=== PATIENT | female | born 1945 | race Caucasian/White ===

== ENCOUNTER 2019-11-09 16:57 | Emergency (ER) | payer MEDICARE, OTHER ==
[~2019-11-09] VITALS: Ht 157.5 cm; Wt 39.5 kg
--- OUTSIDE RECORDS SUMMARY | 2019-11-09 17:02 | XMS REPORT | Summary of Care ---
Author Author [facility] Organization [facility] Address Unknown Phone Unavailable Care Team Providers Care Water/Wastewater Project Manager Name Role Phone Orville Odell PCP Reason for Visit * Reason Comments Establish Care Follow Up Encounter Details Care Team Description Date Type Department Shayy Foster MD [address] [place] [address] Establish Care; Follow Up 10/16/2019 Office Visit [facility] [address], [address] [place] [address] Allergies Comments Active Allergy Reactions Severity Noted Date Ciprofloxacin 11/25/2018 Kdc:Erythromycin+Alcohol+ 04/24/2013 Propylene Glycol Iodine 04/24/2013 Morphine Rash Low 11/15/2015 Opioid Analgesics 04/24/2013 IVP dye - rash - severe Other Other (See High 11/15/2015 Comments), Rash Blood pressure elevates Sulfa Antibiotics Shortness Of High 04/24/2013 Breath Rivaroxaban 11/25/2018 documented as of this encounter (statuses as of 10/16/2019) Medications End Date Status Medication Sig Dispensed Refills Start Date Active amiodarone (PACERONE) 200 Take 100 mg 0 MG tablet by mouth daily. Active losartan-hydrochlorothiaz Take 1 tablet 0 funmilayo (HYZAAR) 100-25 MG by mouth 6 per tablet daily. Active aspirin 81 MG tablet Take 81 mg by 0 mouth daily. Active Carbidopa-Levodopa CR Take 1 tablet 60 Each 5 50-200 MG TBCR by mouth at 8 bedtime. Additional Information Patient not taking. Reason: Therapy completed, Reported on 03/31/2019 1:09 PM Active ezetimibe (ZETIA) 10 MG Take 10 mg by 0 tablet mouth. 8 Active levothyroxine (SYNTHROID) Take by 3 75 MCG tablet mouth daily. 9 Active Pimavanserin Tartrate Take 1 Cap by 30 Cap 5 (NUPLAZID) 34 MG CAPS mouth daily. 9 Active Carbidopa-Levodopa Administer 15 60 Box 11 (DUOPA) 4.63-20 MG/ML ml via peg 9 SUSP tube over 24 hrs/ cont. 5.5 ml per hr/ 1.5 ml prn q hr for periods of poor mobility, slowness and stiffness Active clonazepam (KLONOPIN) 0.5 TAKE 1 TABLET 90 Tab 3 MG tablet BY MOUTH AT 0 BEDTIME Active carbidopa-levodopa Take 2 Tabs 720 Tab 3 (SINEMET) 25-100 MG per by mouth 9 0 tablet times daily. Additional Information Patient not taking. Reported on 10/16/2019 3:17 PM documented as of this encounter (statuses as of 10/16/2019) Active Problems Problem Noted Date Restless legs syndrome (RLS) 06/22/2017 Levodopa-induced dyskinesia 05/22/2017 Dysphagia 05/22/2017 OAB (overactive bladder) 05/22/2017 Hallucinations 05/22/2017 RBD (REM behavioral disorder) 05/22/2017 Anxiety 05/22/2017 Impulse control disorder 05/22/2017 HTN (hypertension) 05/22/2017 CAD (coronary artery disease) 05/22/2017 Hypothyroidism 05/22/2017 Parkinson's disease (HCCode) 04/17/2014 Insomnia due to medical condition classified elsewhere 04/17/2014 H/O: stroke 04/17/2014 documented as of this encounter (statuses as of 10/16/2019) Immunizations Name Administration Dates Next Due Influenza (whole) 04/15/2014 Influenza Hd 06/03/2018, 06/22/2017 Pneumococcal 05/13/2013 Polysaccharide documented as of this encounter Social History Date Tobacco Use Types Packs/Day Years Used Never Smoker Smokeless Tobacco: Never Used Drinks/Week oz/Week Comments Alcohol Use 1 Glasses of wine 1.0 No Sex Assigned at Date Recorded Not on file Industry Job Start Date Occupation Not on file Not on file Not on file Travel End Travel History Travel Start No recent travel history available. documented as of this encounter Last Filed Vital Signs Reading Time Taken Comments Vital Sign - - Blood Pressure - - Pulse - - Temperature 16 10/16/2019 3:16 PM [employer]IT[employer]EL[employer] Respiratory Rate - - Oxygen Saturation - - Inhaled Oxygen Concentration 39.5 kg (87 lb) 10/16/2019 3:16 PM [employer]ITATIVE DEVELOPER Weight 157.5 cm (5' 2") 10/16/2019 3:16 PM QU[employer]ITATIVE DEVELOPER Height 15.91 10/16/2019 3:16 PM [employer]ITATIVE DEVELOPER Body Mass Index documented in this encounter Progress Notes * Shayy Foster MD - 10/16/2019 3:00 PM [employer]ITATIVE DEVELOPER History of Present Illness: Carmen Camacho is a 73 y.o. female who presents for further evaluation of mal nutrition Initial history The patient has parkinsons and has resultant dysphagia from this. She has lost w eight. The patient also has constipation that is not being managed well with her curren t regimen. Interval history 10/16/2019 Had hospitalization at an OSH that resulted in a tube change. The patient now thacker s issues with the tubing and connection. There is no odynophagia, dysphagia There is no emesis, hematemesis There is no weight loss. There is no melena, hematochezia Review of Systems: Constitutional: does not endorse current fever, does not endorse recent trauma Eyes: does not endorse current visual changes, does not endorse current double v ision ENT: does not endorse ear pain, does not endorse tinnitus Cardiovascular: does not endorse chest pain Respiratory: denies cough, denies shortness of breath Gastrointestinal: see HPI Genitourinary: does not endorse hematuria, does not endorse dysuria Musculoskeletal: does not endorse new muscle pain Hematological: does not endorse excessive/prolonged bleeding Neurological: does not endorse confusion Social History: Smoking: no EtOH: yes Social History Tobacco Use Smoking status: Never Smoker Smokeless tobacco: Never Used Substance Use Topics Alcohol use: No Alcohol/week: 1.0 standard drinks Types: 1 Glasses of wine per week Drug use: No Past Medical History: Past Medical History: Diagnosis Date Anxiety Atrial fibrillation (HCCode) on blood thinner CAD (coronary artery disease) Depression Esophageal reflux Hyperlipidemia Hypertension Stroke (HCCode) 2007 dysarthria, right facial droop. MRI brain showed abnormality consistent with s troke. Unspecified hypothyroidism Past Surgical History: Past Surgical History: Procedure Laterality Date HX BREAST SURGERY 2009 benign cyst removal. HX CATARACT REMOVAL 2006 HX CHOLECYSTECTOMY 1995 HX HEART CATHETER 2009 HX HYSTERECTOMY, TOTAL ABDOMINAL 1984 Family History: There is no family history of GI malignancy. There is no family history of inflammatory bowel disease. Physical Exam: Vital Signs Height: 5' 2" (157.5 cm) Weight - Scale: 87 lb (39.5 kg) Respirations: 16 BP: (unable to obtain BP) Body mass index is 15.91 kg/m. General: No apparent distress Neuro: alert, responsive, oriented to self Head: Normocephalic and atraumatic EENT: PERRL, EOMI Neck: Supple, no masses appreciated CV: RRR, PMI is nondisplaced Lung: no labored breathing, grossly CTAB Extremities: no edema, no clubbing Abdomen: soft tender, not distended +BS Assessment and Plan: () g-j tube malfunction -the patient needs new adapter to for current g-j tube -Patients needs to have medications from [facility] -Telephone number -Ask for inventory ID [id number] (ENFIT adapter) () Constipation -failed fiber, miralax, stool softeners -trial of linzess () Thank you for allowing me to part of this patients medical care. I have revie wed the above with the patient who expresses understanding. If there are any que stions, please do not hesitate to contact me. TITATIVE DEVELOPER documented in this encounter Plan of Treatment Care Team Description Date Type Specialty Layo Barbosa MD [address] [place] [address] 10/24/2019 Office Visit Neurology Health Maintenance Due Date Last Done Comments COLON CANCER SCREENIN1947 COLONOSCOPY TETANUS SHOT (ADULT) 1962 BMI FOLLOW UP PLAN 1965 FALL SCREEN 2012 OSTEOPOROSIS SCREENING 2012 PREVNAR >=65 (PCV13) 2012 MAMMOGRAM ANNUAL 06/17/2015 06/17/2014 MEDICARE AWV (Initial) 05/18/2017 PNEUMOVAX >=65 (PPSV23) Completed 05/13/2013 HEPATITIS C SCREENING Addressed 05/22/2017 (Declined) Overridden with the intention of not completing the topic FLU VACCINE > 6 MONTHS Completed 08/22/2019, 06/03/2018, 06/22/2017, Additional history exists documented as of this encounter Results Not on filedocumented in this encounter Visit Diagnoses Diagnosis Gastrostomy tube dysfunction (HCCode) - Primary Mechanical complication of gastrostomy documented in this encounter Insurance Type Payer Benefit Subscriber ID Effective Phone Address Plan / Dates Group Medicare MEDICARE MEDICARE xxxxxxxxxxx 2017- [address] Present [id number] [place] [address] Medicare AETNA AETNA xxxxxxxxxx 2014- [address] Present [id number] [place] [address] documented as of this encounter
--- OUTSIDE RECORDS SUMMARY | 2019-11-09 17:02 | XMS REPORT ---
[facility] Address Unknown Phone Unavailable Care Team Providers Care Bottoming Room Supervisor Name Role Phone KATH DIXON Unavailable Unavailable Payers Payer Name Policy Type Policy Number Effective Date Expiration Date Problems This patient has no known problems. Allergies, Adverse Reactions, Alerts Allergy Name Allergy Type Status Severity Reaction(s) Onset Date Inactive Date Treating Clinician Comments antipsychotic meds DA Active SV 2019-09-18 00:00:00 ANTI PSYCHOTIC DRUGS DA Active U 2019-09-18 00:00:00 Iodinated Contrast Media DA Active SV 2019-09-18 00:00:00 Sulfa (Sulfonamide Antibiotics) DA Active SV 2019-09-18 00:00:00 haloperidol DA Active NM 2019-09-18 00:00:00 morphine DA Active SV 2019-09-18 00:00:00 clonazepam DA Active NM 2019-09-18 00:00:00 erythromycin base DA Active SV 2019-09-18 00:00:00 ciprofloxacin DA Active U 2019-09-18 00:00:00 gabapentin DA Active NM 2019-09-18 00:00:00 atorvastatin DA Active SV 2019-09-18 00:00:00 rivaroxaban DA Active SV 2019-09-18 00:00:00 xeralto DA Active U 2019-09-17 00:00:00 ciprofloxacin DA Active U 2019-09-16 00:00:00 Iodinated Contrast- Oral and IV Dye DA Active SV 2019-03-16 00:00:00 Sulfa (Sulfonamide Antibiotics) DA Active SV 2019-03-16 00:00:00 morphine DA Active SV 2019-03-16 00:00:00 erythromycin base DA Active SV 2019-03-16 00:00:00 atorvastatin DA Active SV 2019-03-16 00:00:00 rivaroxaban DA Active SV 2019-03-16 00:00:00 Iodinated Contrast- Oral and IV Dye DA Active SV 2019-03-05 00:00:00 Sulfa (Sulfonamide Antibiotics) DA Active SV 2019-03-05 00:00:00 morphine DA Active SV 2019-03-05 00:00:00 erythromycin base DA Active SV 2019-03-05 00:00:00 atorvastatin DA Active SV 2019-03-05 00:00:00 rivaroxaban DA Active SV 2019-03-05 00:00:00 Iodinated Contrast- Oral and IV Dye DA Active SV 2018-10-20 00:00:00 Sulfa (Sulfonamide Antibiotics) DA Active SV 2018-10-20 00:00:00 morphine DA Active SV 2018-10-20 00:00:00 erythromycin base DA Active SV 2018-10-20 00:00:00 atorvastatin DA Active SV 2018-10-20 00:00:00 rivaroxaban DA Active SV 2018-10-20 00:00:00 Iodinated Contrast- Oral and IV Dye DA Active SV 2017-09-27 00:00:00 Sulfa (Sulfonamide Antibiotics) DA Active SV 2017-09-27 00:00:00 morphine DA Active SV 2017-09-27 00:00:00 erythromycin base DA Active SV 2017-09-27 00:00:00 atorvastatin DA Active SV 2017-09-27 00:00:00 rivaroxaban DA Active SV 2017-09-27 00:00:00 Medications This patient has no known medications. Results Test Description Test Time Test Comments Text Results Atomic Results Result Comments WOUND CULTURE + GRAM STAIN 2019-11-05 12:01:00 CULTURE (BEAKER) (test wbsf=2754) STAPHYLOCOCCUS AUREUS 4+ Staphylococcus aureus Clindamycin (test code=10) Erythromycin (test code=4) Linezolid (test code=40) Nitrofurantoin (test code=23) Oxacillin (test code=14) Rifampin (test code=43) Tetracycline (test code=2) Trimethoprim + Sulfamethoxazole (test code=47) Vancomycin (test code=13) GRAM STAIN RESULT (BEAKER) (test oilv=6113) 2+ White blood cells seen GRAM STAIN RESULT (BEAKER) (test mnxg=023812) 0-5 epithelial cells GRAM STAIN RESULT (BEAKER) (test megu=251944) 1+ gram positive cocci in pairs URINE [id number] 10:44:00* Test Item Value Reference Range Comments CULTURE (BEAKER) (test kcqy=3874) See comment <10,000 col/mL skin floraURINALYSIS W/ [id number] 19:14:00* Test Item Value Reference Range Comments COLOR (BEAKER) (test fsxb=715) Yellow CLARITY (BEAKER) (test nljg=741) Hazy SPECIFIC GRAVITY UA (BEAKER) (test iihc=705) 1.020 1.001-1.035 PH UA (BEAKER) (test qpic=922) 7.0 5.0-8.0 PROTEIN UA (BEAKER) (test vxnz=282) 30 mg/dL Negative GLUCOSE UA (BEAKER) (test ecmk=834) Negative Negative KETONES UA (BEAKER) (test jwmp=565) 40 mg/dL Negative BILIRUBIN UA (BEAKER) (test njky=791) Positive Negative BLOOD UA (BEAKER) (test jxes=707) Negative Negative NITRITE UA (BEAKER) (test hlci=279) Negative Negative LEUKOCYTE ESTERASE UA (BEAKER) (test moqj=875) Trace Negative UROBILINOGEN UA (BEAKER) (test evfj=352) 1.0 mg/dL 0.2-1.0 RBC UA-MANUAL (BEAKER) (test topm=8499) None Seen /HPF WBC UA-MANUAL (BEAKER) (test bxsn=8393) 10-20 /HPF SQUAMOUS EPITHELIAL MANUAL (BEAKER) (test blfe=1688) 10-20 /HPF SOURCE(BEAKER) (test xijj=4017) UA RFLX MICR CULT IF [id number] 01:45:00* Test Item Value Reference Range Comments UA COLOR (test code=COLU) YELLOW YEL/STRAW UA APPEARANCE (test code=APPU) CLOUDY CLEAR UA GLUCOSE DIPSTICK (test code=DGLUU) NEGATIVE NEGATIVE UA BILIRUBIN DIPSTICK (test code=BILU) NEGATIVE NEGATIVE UA KETONE DIPSTICK (test code=KETU) 1+ NEGATIVE UA SPECIFIC GRAVITY (test code=SGU) 1.015 1.005-1.030 UA BLOOD DIPSTICK (test code=XIOMARA) 3+ NEGATIVE UA PH DIPSTICK (test code=KINZA) 6.0 5.0-7.0 UA PROTEIN DIPSTICK (test code=PROU) 2+ NEGATIVE UA UROBILINIOGEN DIPSTICK (test code=URO) 0.2 mg/dL 0.2-1.0 UA NITRITE DIPSTICK (test code=LUIS) NEGATIVE NEGATIVE UA LEUKOCYTE ESTERASE DIPSTICK (test code=LEUU) TRACE NEGATIVE UA WBC (test code=WBCU) 4-9 WBC/HPF 0-3 UA RBC (test code=RBCU) >50 RBC/HPF 0-3 UA WBC NO REFLEX (test code=WBCUCL) 4-9 WBC/HPF 0-3 UA BACTERIA (test code=BACU) TRACE /HPF NONE SEEN UA SQUAMOUS CELLS (test code=SQU) NONE SEEN /HPF NONE SEEN UA HYALINE CAST (test code=HYALU) 3-5 /LPF NONE SEEN UA MUCUS (test code=MUCU) 1+ /LPF NONE SEEN UA YEAST (BUDDING) (test code=YEASTUBD) 1+ /HPF NONE Indication for culture: Delirium-if no other srcSpecimen Description: CLEAN CATCHDRUGS OF ABUSE SCREEN [id number] 01:35:00* Test Item Value Reference Range Comments URN COCAINE (test code=COCAURN) NEGATIVE NEGATIVE URN CANNABINOIDS (test code=CANNABURN) NEGATIVE NEGATIVE URN AMPHETAMINE (test code=AMPHETURN) NEGATIVE NEGATIVE URN BARBITURATE (test code=BARBITURN) NEGATIVE NEGATIVE URN BENZODIAZEPINE (test code=BENZOURN) NEGATIVE NEGATIVE Cut-off value:200 ng/mL URN OPIATES (test code=OPIATURN) NEGATIVE NEGATIVE Cut-off value:2000 ng/mL URN PHENCYCLIDINE (PCP) (test code=PHENCURN) NEGATIVE NEGATIVE Cutoffs:Barbiturates 200 ng/mLBenzodiazepines 200 ng/mLTHC Cannabinoids 50 ng/mLOpiates(Morphine) 2000 ng/mLAmphetamine 1000 ng/mLCocaine 300 ng/mLPCP phencyclidine 25 ng/mL Unconfirmed screening results shouldnot be used for non-medical purposes. - CT HEAD/BRAIN W/O [id number] 00:08:00 Name: BIANKA DE LEON [facility] : 1945 Age/S: 73 / F [address] [place] [address] Unit #: [id number] Loc: [place] [address] Phys: Jared Arndt DO Acct: [id number] Dis Date: Status: REG ER PHONE #: [phone] Exam Date: 10/22/20192235 FAX #: [phone] Reason: Altered Mental Status EXAMS: CPT CODE: [id number] CT HEAD/BRAIN W/O CONT 16498 STUDY: - CT HEAD/BRAIN W/O CONT 10/22/2019 9:51 PM Ordering Physician: Jared Arndt DO Patient Name: BIANKA DE LEON MR: [id number] : 1945; Age: 73 years y/o Female Clinical Indication: Altered Mental Status Comparison: 07/24/2019 TECHNIQUE: Multiple contiguous transaxial noncontrast CT images were obtained through the head. Coronal and sagittal reformatted images were prepared. CT imaging performed at this location utilizes radiation dose optimization techniques which include one or more of the following: -Automated exposure control -Adjustment of the mA and/or kV according to patient size -Use of iterative reconstruction technique CT Radiation Dose DLP: 469.15 mGy-cm FINDINGS: The examination is mildly limited by oblique patient positioning. BRAIN PARENCHYMA: Mild diffuse age-appropriate atrophy is present associated with moderate nonspecific periventricular low attenuation most consistent with old microangiopathic ischemic change. 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 Stable old right basal ganglia lacunar infarction. No evidence of acute intracranial hemorrhage, mass lesion, mass e ffect, midline shift, or extra-axial fluid collection. VENTRICLES: The lateral ventricles, third ventricle, fourth ventricle, and basilar ci sterns are appropriate for degree of atrophy present. PARANASAL SI NUSES: Minimal mucoperiosteal thickening in the ethmoid PAGE 1 Signed Report (CONTINUED) Name: BIANKA DE LEON [facility] : 1945 Age/S: 73 / F [address] [place] [address] Unit #: [id number] Loc: [place] [address] Phys: Jared Arndt DO Acct: [id number] Dis Date: Status: REG ER PHONE #: [phone] Exam Date: 10/22/20192235 FAX #: [phone] Reason: Altered Mental Status EXAMS: CPT CODE: [id number] CT HEAD/BRAIN W/O CONT 66073 <Continued> sinus and right maxillary sinus. The visualized portions of the remaining paranasal sinuses are clear. MASTOIDS: Clear. ORBITS: The visualized portions of the orbits are normal. SOFT TISSUES: No significant abnormality. SKULL: No acute fracture or suspicious osseous lesion. IMPRESSION: Mild diffuse age-appropriate atrophy is present associated with moderate nonspecific periventricular low attenuation most consistent with old microangiopathic ischemic change. No acute intracranial abnormality. 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 Stable old right basal ganglia lacunar infarction. Minimal chronic sinusitis. SL: TPAINTER-H at 0008 Reported and signed by: Catalino Gaspar M.D. CC: Jared Arndt DO; Orville Odell DO Technologist:RT Robert(Orville) CTDI: DLP: Trnscb Date/Time: 10/23/2019 (0008) [id number] Orig Print D/T: S: 10/23/2019 (0011) PAGE 2 Signed Report - XR CHEST 1 [id number] 23:46:00 FAX: Jared Schafer DO [phone] [place]: St: REG FAX: Orville Mayfield [phone] Name: BIANKA DE LEON [facility] : 1945 Age/S: 73/F [address] [place] [address] Unit #: [id number] Loc: [place] [address] Phys: Jared Arndt DO Acct: [id number] Dis Date: Status: REG ER PHONE #: [phone] Exam Date: 10/22/2019 2344 FAX #: [phone] Reason: Altered Mental Status EXAMS: CPT CODE: [id number] XR CHEST 1 V 89810 Study: - XR CHEST 1 V 10/22/2019 9:51 PM Patient Name: BIANKA DE LEON MR: [id number] : 1945; Age: 73 years y/o Female Ordering Physician: Jared Arndt DO Clinical Indication: Altered Mental Status Comparison: 09/27/2019 FINDINGS LUNGS: Mild hypoinflation without consolidation, pleural effusion, or pneumothorax. Small nodular densities in the right suprahilar region may represent artifact from vessels or true pulmonary nodules although further characterization is difficult given oblique patient positioning. HEART AND MEDIASTINUM: Stable mild cardiomegaly. LINES: None. OSSEOUS STRUCTURES: No fracture, dislocation, or suspicious focal osseous lesion. OTHER: Postoperative change in the right upper abdominal quadrant. IMPRESSION: Hypoinflated but clear lungs with nodular densities in the right suprahilar region that may represent summation artifact or true pulmonary nodules. Further characterization is difficult given oblique patient positioning. Short interval follow-up radiographs or CT is rec ommended. Mild cardiomegaly. SL: TPAINTER-H PAGE 1 Signed Report (CONTINUED) FAX: Jared Schafer DO [phone] [place]: St: REG FAX: Orville Mayfield [phone] Name: POOJA DE LEON [facility] : 1945 Age/ S: 73/F [address] [place] [address] Unit #: [id number] Loc: [place] [address] [place] [address] Phys: Jared Arndt DO Acct: [id number] Dis Date: Status: REG ER PHONE #: [phone] Exam Date: 10/22/20192343 FAX #: [phone] Reason: Altered Mental Status EXAMS: CPT CODE: [id number] XR CHEST 1 V 05937 <Continued> at 2346 Reported and signed by: Catalino Gaspar M.D. CC: Jared Arndt DO; Orville Odell DO Technologist: Tamra Burk RT(R) Trnscrd Date/Time/By: 10/22/2019 (598) : By: [email or web address] Orig Print D/T: S: 10/22/2019 (6287) PAGE 2 Signed Report BASIC METABOLIC [id number] 22:45:00* Test Item Value Reference Range Comments SODIUM (test code=NA) 144 mEq/L 134-147 POTASSIUM (test code=K) 3.8 mEq/L 3.4-5.0 CHLORIDE (test code=CL) 112 mEq/L 100-108 CARBON DIOXIDE (test code=CO2) 24 mEq/L 21-33 ANION GAP (test code=GAP) 12 0-20 GLUCOSE (test code=GLU) 98 mg/dL 70-110 BLOOD UREA NITROGEN (test code=BUN) 12 mg/dL 7-18 GLOMERULAR FILTRATION RATE (test code=GFR) 82.5 70-80 Units of measure=ml/min/1.73 m2 CREATININE (test code=CREAT) 0.7 mg/dL 0.6-1.3 CALCIUM (test code=CA) 9.7 mg/dL 8.0-10.5 HEPATIC FUNCTION [id number] 22:45:00* Test Item Value Reference Range Comments TOTAL PROTEIN (test code=PROT) 6.8 g/dL 6.4-8.2 ALBUMIN (test code=ALB) 4.00 g/dL 3.4-5.0 BILIRUBIN TOTAL (test code=BILT) 0.7 MG/DL <1.5 BILIRUBIN DIRECT (test code=BILD) 0.20 MG/DL 0.0-0.30 BILIRUBIN INDIRECT (test code=BILIND) 0.50 MG/DL SGOT/AST (test code=AST) 27 IUnit/L 15-37 SGPT/ALT (test code=ALT) 11 IUnit/L 15-65 ALKALINE PHOSPHATASE TOTAL (test code=ALKP) 91 IUnit/L 20-125 CREATINE KINASE (CK)2019-10-22 22:45:00* Test Item Value Reference Range Comments CREATINE KINASE (CK) (test code=CK) 153 35-232 Result is in INTERNATIONAL UNITS/LITER TSH REFLEX TO [id number] 22:45:00* Test Item Value Reference Range Comments TSH REFLEX TO FT4 (test code=TSHREFLEX) 3.63 IU/mL 0.42-5.47 [id number] 22:45:00* Test Item Value Reference Range Comments ALCOHOL (test code=ALC) < 0.003 G/dL <0.003 Ethyl Alcohol Interpretation: 0.100 gm/dL - Legally Intoxicated 0.300-0.400 gm/dL - Severely Intoxicated >0.400 gm/dL - Potentially LethalResults are for Medical purposes only, and not for Legal orEmployment evaluation purposes. BASIC METABOLIC [id number] 22:37:00* Test Item Value Reference Range Comments SODIUM (test code=NA) 144 mEq/L 134-147 POTASSIUM (test code=K) 3.8 mEq/L 3.4-5.0 CHLORIDE (test code=CL) 112 mEq/L 100-108 CARBON DIOXIDE (test code=CO2) 24 mEq/L 21-33 ANION GAP (test code=GAP) 12 0-20 GLUCOSE (test code=GLU) 98 mg/dL 70-110 BLOOD UREA NITROGEN (test code=BUN) 12 mg/dL 7-18 GLOMERULAR FILTRATION RATE (test code=GFR) 82.5 70-80 Units of measure=ml/min/1.73 m2 CREATININE (test code=CREAT) 0.7 mg/dL 0.6-1.3 CALCIUM (test code=CA) 9.7 mg/dL 8.0-10.5 HEPATIC FUNCTION [id number] 22:37:00* Test Item Value Reference Range Comments TOTAL PROTEIN (test code=PROT) 6.8 g/dL 6.4-8.2 ALBUMIN (test code=ALB) 4.00 g/dL 3.4-5.0 BILIRUBIN TOTAL (test code=BILT) 0.7 MG/DL <1.5 BILIRUBIN DIRECT (test code=BILD) 0.20 MG/DL 0.0-0.30 BILIRUBIN INDIRECT (test code=BILIND) 0.50 MG/DL SGOT/AST (test code=AST) 27 IUnit/L 15-37 SGPT/ALT (test code=ALT) 11 IUnit/L 15-65 ALKALINE PHOSPHATASE TOTAL (test code=ALKP) IUnit/L 20-125 CREATINE KINASE (CK)2019-10-22 22:37:00* Test Item Value Reference Range Comments CREATINE KINASE (CK) (test code=CK) 35-232 TSH REFLEX TO [id number] 22:37:00* Test Item Value Reference Range Comments TSH REFLEX TO FT4 (test code=TSHREFLEX) IU/mL 0.42-5.47 [id number] 22:37:00* Test Item Value Reference Range Comments ALCOHOL (test code=ALC) < 0.003 G/dL <0.003 Ethyl Alcohol Interpretation: 0.100 gm/dL - Legally Intoxicated 0.300-0.400 gm/dL - Severely Intoxicated >0.400 gm/dL - Potentially LethalResults are for Medical purposes only, and not for Legal orEmployment evaluation purposes. CBC W/AUTO [id number] 22:15:00* Test Item Value Reference Range Comments WHITE BLOOD CELL (test code=WBC) 8.06 x10 3/uL 4.5-11.0 RED BLOOD CELL (test code=RBC) 3.09 x10 6/uL 3.54-5.02 HEMOGLOBIN (test code=HGB) 9.8 g/dL 11.0-15.0 HEMATOCRIT (test code=HCT) 30.9 % 33.0-45.0 MEAN CELL VOLUME (test code=MCV) 100.0 fL 81.0-99.0 MEAN CELL HGB (test code=MCH) 31.7 pg 27.0-33.0 MEAN CELL HGB CONCETRATION (test code=MCHC) 31.7 g/dL 33.0-37.0 RED CELL DISTRIBUTION WIDTH CV (test code=RDW) 14.0 % 11.5-14.5 RED CELL DISTRIBUTION WIDTH SD (test code=RDW-SD) 51.3 fL 37.0-54.0 PLATELET COUNT (test code=PLT) 303 x10 3/uL 150-400 MEAN PLATELET VOLUME (test code=MPV) 9.5 fL 7.0-9.0 NEUTROPHIL % (test code=NT%) 69.2 % 56.0-77.0 IMMATURE GRANULOCYTE % (test code=IG%) 0.9 % 0.0-2.0 LYMPHOCYTE % (test code=LY%) 16.3 % 14.0-32.0 MONOCYTE % (test code=MO%) 12.0 % 4.8-9.0 EOSINOPHIL % (test code=EO%) 1.2 % 0.3-3.7 BASOPHIL % (test code=BA%) 0.4 % 0.0-2.0 NUCLEATED RBC % (test code=NRBC%) 0.0 % 0-0 NEUTROPHIL # (test code=NT#) 5.58 x10 3/uL 2.0-7.6 IMMATURE GRANULOCYTE # (test code=IG#) 0.07 x10 3/uL 0.00-0.03 LYMPHOCYTE # (test code=LY#) 1.31 x10 3/uL 1.0-3.8 MONOCYTE # (test code=MO#) 0.97 x10 3/uL 0.1-0.8 EOSINOPHIL # (test code=EO#) 0.10 x10 3/uL 0.0-0.2 BASOPHIL # (test code=BA#) 0.03 x10 3/uL 0.0-0.2 NUCLEATED RBC # (test code=NRBC#) 0.00 x10 3/uL 0.0-0.1 MANUAL DIFF REQUIRED (test code=MDIFF) NO - CVRT GASTR TO GSJEJ [id number] 14:35:00 Name: BIANKA DE LEON [facility] : 1945 Age/S: 73 / F [address] [facility] Unit #: [id number] Loc: [place] [address] Phys: Adis Berman MD Acct: [id number] Dis Date: [id number] Status: DIS IN PHONE #: [phone] Exam Date: 09/26/2019 1146 FAX #: [phone] Reason: EXAMS: CPT CODE: [id number] CVRT GASTR TO GSJEJ TUBE 31825 Fluoro Time: 743.4 DAP (Gy m2): 7.80 Air Kerma (mGy): 63 EXAM: Percutaneous conversion of gastrostomy to gastrojejunostomy; INFORMATION: Patient with history of Parkinson's disease. She requires continuous drug infusion into the jejunum and she also needs gastric tube feeding. She presents with a PEG tube and has been referred for conversion to gastrojejunostomy. TECHNIQUE AND FINDINGS: Informed consent was obtained and the patient was placed supine on the CT table. Initial fluoroscopic imaging shows the tip of a PEG tube within the gastric corpus. General anesthesia was initiated, the patient's skin in the epigastric region was prepped and draped in the usual sterile fashion and Marcaine was administered around the skin entry site of the PEG tube. Ancef was given intravenously and 1 mg of glucagon was also given intravenously. The stomach was then inflated by injecting air through the indwelling PEG tube which was then removed over a guidewire. Using a 5 Honduran Kumpe catheter the wire was advanced through the pylorus into the duodenum and further into the proximal jejunum. A 22 [place]uran soft Silastic gastrojejunal feeding tube was then inserted. Its retention balloon was inflated with dilute contrast material. Contrast material was then also injected through the feeding tube which was well-positioned with its tip in the proximal jejunal. No complications. IMPRESSION: Successful conversion of gastrostomy to gastrojejunostomy under fluoroscopic guidance. Fluoroscopy Time: 743.4 sec CAK : 63 mGy DAP : 7800 mGy sq cm Loc ation code: H[facility] at 1434 Reported and signed by: Kevin Feliciano M.D. CC: Adis Berman MD; Orville Odell DO Technologist: Kavitha Tom Trnalb Date/Time: 10/03/2019 (1434) Wei Orig Print D/T: S: 10/03/2019 (2541) PAGE 1 Signed Report BASIC METABOLIC [id number] 10:49:00* Test Item Value Reference Range Comments SODIUM (test code=NA) 135 mmol/L 136-145 POTASSIUM (test code=K) 4.4 mmol/L 3.5-5.1 CHLORIDE (test code=CL) 102.0 mmol/L 98-107 CARBON DIOXIDE (test code=CO2) 27.0 mmol/L 21-32 ANION GAP (test code=GAP) 10.4 10-20 GLUCOSE (test code=GLU) 140 mg/dL 74-106 BLOOD UREA NITROGEN (test code=BUN) 15 mg/dL 7-18 GLOMERULAR FILTRATION RATE (test code=GFR) > 60 mL/min >=60 Estimated GFR by using Modified MDRD formula.Chronic kidney disease is defined as either kidney damageor GFR <60 mL/min/1.73 m2 for >3 months. CREATININE (test code=CREAT) 0.50 mg/dL 0.55-1.02 Note change in reference range due to change in reagent. BUN/CREATININE RATIO (test code=BUN/CREA) 30.0 10-20 CALCIUM (test code=CA) 9.0 mg/dL 8.5-10.1 CBC W/AUTO [id number] 10:22:00* Test Item Value Reference Range Comments WHITE BLOOD CELL (test code=WBC) 12.7 K/mm3 4.5-12.5 RED BLOOD CELL (test code=RBC) 3.41 mill/mm3 3.7-5.2 HEMOGLOBIN (test code=HGB) 10.9 gram/dL 11.5-15.5 HEMATOCRIT (test code=HCT) 32.6 % 36.0-46.0 MEAN CELL VOLUME (test code=MCV) 95.6 fL 80-98 MEAN CELL HGB (test code=MCH) 32.0 picogram 27.0-33.0 MEAN CELL HGB CONCETRATION (test code=MCHC) 33.4 gram/dL 33.0-36.0 RED CELL DISTRIBUTION WIDTH (test code=RDW) 14.6 % 11.6-16.2 RED CELL DISTRIBUTION WIDTH SD (test code=RDW-SD) 50.0 fL 37.0-51.0 PLATELET COUNT (test code=PLT) 227 K/mm3 150-450 MEAN PLATELET VOLUME (test code=MPV) 12.2 fL 6.7-11.0 NEUTROPHIL % (test code=NT%) 84.0 % 39.0-69.0 IMMATURE GRANULOCYTE % (test code=IG%) 0.6 % 0.0-5.0 LYMPHOCYTE % (test code=LY%) 4.2 % 25.0-55.0 MONOCYTE % (test code=MO%) 10.8 % 0.0-10.0 EOSINOPHIL % (test code=EO%) 0.2 % 0.0-5.0 BASOPHIL % (test code=BA%) 0.2 % 0.0-1.0 NUCLEATED RBC % (test code=NRBC%) 0.0 % 0-0 NEUTROPHIL # (test code=NT#) 10.68 K/mm3 1.8-7.7 IMMATURE GRANULOCYTE # (test code=IG#) 0.08 x10 3/uL 0-0.03 LYMPHOCYTE # (test code=LY#) 0.54 K/mm3 1.0-5.0 MONOCYTE # (test code=MO#) 1.37 K/mm3 0-0.8 EOSINOPHIL # (test code=EO#) 0.03 K/mm3 0.0-0.5 BASOPHIL # (test code=BA#) 0.02 K/mm3 0.0-0.2 NUCLEATED RBC # (test code=NRBC#) 0.00 K/mm3 0.0-0.1 MANUAL DIFF REQUIRED (test code=MDIFF) NO BASIC METABOLIC [id number] 13:54:00* Test Item Value Reference Range Comments SODIUM (test code=NA) 138 mmol/L 136-145 POTASSIUM (test code=K) 4.6 mmol/L 3.5-5.1 CHLORIDE (test code=CL) 103.0 mmol/L 98-107 CARBON DIOXIDE (test code=CO2) 30.0 mmol/L 21-32 ANION GAP (test code=GAP) 9.6 10-20 GLUCOSE (test code=GLU) 125 mg/dL 74-106 BLOOD UREA NITROGEN (test code=BUN) 16 mg/dL 7-18 GLOMERULAR FILTRATION RATE (test code=GFR) > 60 mL/min >=60 Estimated GFR by using Modified MDRD formula.Chronic kidney disease is defined as either kidney damageor GFR <60 mL/min/1.73 m2 for >3 months. CREATININE (test code=CREAT) 0.50 mg/dL 0.55-1.02 Note change in reference range due to change in reagent. BUN/CREATININE RATIO (test code=BUN/CREA) 32.0 10-20 CALCIUM (test code=CA) 8.6 mg/dL 8.5-10.1 BASIC METABOLIC [id number] 13:53:00* Test Item Value Reference Range Comments SODIUM (test code=NA) 138 mmol/L 136-145 POTASSIUM (test code=K) 4.6 mmol/L 3.5-5.1 CHLORIDE (test code=CL) 103.0 mmol/L 98-107 CARBON DIOXIDE (test code=CO2) mmol/L 21-32 ANION GAP (test code=GAP) 10-20 GLUCOSE (test code=GLU) mg/dL 74-106 BLOOD UREA NITROGEN (test code=BUN) mg/dL 7-18 GLOMERULAR FILTRATION RATE (test code=GFR) mL/min >=60 CREATININE (test code=CREAT) mg/dL 0.55-1.02 BUN/CREATININE RATIO (test code=BUN/CREA) 10-20 CALCIUM (test code=CA) mg/dL 8.5-10.1 BASIC METABOLIC [id number] 13:51:00* Test Item Value Reference Range Comments SODIUM (test code=NA) 138 mmol/L 136-145 POTASSIUM (test code=K) 4.3 mmol/L 3.5-5.1 CHLORIDE (test code=CL) 103.0 mmol/L 98-107 CARBON DIOXIDE (test code=CO2) 29.0 mmol/L 21-32 ANION GAP (test code=GAP) 10.3 10-20 GLUCOSE (test code=GLU) 161 mg/dL 74-106 BLOOD UREA NITROGEN (test code=BUN) 18 mg/dL 7-18 GLOMERULAR FILTRATION RATE (test code=GFR) > 60 mL/min >=60 Estimated GFR by using Modified MDRD formula.Chronic kidney disease is defined as either kidney damageor GFR <60 mL/min/1.73 m2 for >3 months. CREATININE (test code=CREAT) 0.60 mg/dL 0.55-1.02 Note change in reference range due to change in reagent. BUN/CREATININE RATIO (test code=BUN/CREA) 30.0 10-20 CALCIUM (test code=CA) 8.7 mg/dL 8.5-10.1 DR IN ROOM AT 1045. COME BACK IN A FEW MINUTES. BASIC METABOLIC [id number] 13:38:00* Test Item Value Reference Range Comments SODIUM (test code=NA) 138 mmol/L 136-145 POTASSIUM (test code=K) 4.3 mmol/L 3.5-5.1 CHLORIDE (test code=CL) 103.0 mmol/L 98-107 CARBON DIOXIDE (test code=CO2) mmol/L 21-32 ANION GAP (test code=GAP) 10-20 GLUCOSE (test code=GLU) mg/dL 74-106 BLOOD UREA NITROGEN (test code=BUN) mg/dL 7-18 GLOMERULAR FILTRATION RATE (test code=GFR) mL/min >=60 CREATININE (test code=CREAT) mg/dL 0.55-1.02 BUN/CREATININE RATIO (test code=BUN/CREA) 10-20 CALCIUM (test code=CA) mg/dL 8.5-10.1 DR IN ROOM AT 1045. COME BACK IN A FEW MINUTES. - XR CHEST 1 [id number] 08:50:00 FAX: Adis Berman MD [phone] [place]: St: ADM FAX: Eugene Driscoll NP [phone] FAX: [facility] [phone] Name: BIANKA DE LEON [facility] : 1945 Age/S: 73[facility]F [address] [facility] Unit #: [id number] Loc: [id number] [place], [place] [id number] Phys: Eugene Driscoll NP Acct: [id number] Dis Date: Status: ADM IN PH ONE #: [id number] Exam Date: 09/27/2019804 FAX #: [phone] Reason: edema EXAMS: CPT CODE: [id number] XR CHEST 1 V [id number] EXAM: Chest x- ray, one view; INFORMATION: Edema; IMPRESSION: 1. Small left pleural effusion; this is new compared with a study from September 16, 2019. 2. Otherwise, no major change; no evidence of pu lmonary edema; mild cardiomegaly. Location code: at 0850 Reported and signed by: Kevin Feliciano M.D. CC: Adis Berman MD; uEgene Driscoll NP; Orville Odell DO Technologist: BENJAMÍN CASTANEDA RT(R) Trnscrd Date/Time/By: 09/27/2019 (0850) : By: t.S Orig Print D/T: S: 09/27/2019 (0854) JOLEEN GOSS 1 Signed Report BASIC METABOLIC [id number] 05:25:00* Test Item Value Reference Range Comments SODIUM (test code=NA) 141 mmol/L 136-145 POTASSIUM (test code=K) 4.7 mmol/L 3.5-5.1 CHLORIDE (test code=CL) 108.0 mmol/L 98-107 CARBON DIOXIDE (test code=CO2) 28.0 mmol/L 21-32 ANION GAP (test code=GAP) 9.7 10-20 GLUCOSE (test code=GLU) 107 mg/dL 74-106 BLOOD UREA NITROGEN (test code=BUN) 11 mg/dL 7-18 GLOMERULAR FILTRATION RATE (test code=GFR) > 60 mL/min >=60 Estimated GFR by using Modified MDRD formula.Chronic kidney disease is defined as either kidney damageor GFR <60 mL/min/1.73 m2 for >3 months. CREATININE (test code=CREAT) 0.40 mg/dL 0.55-1.02 Note change in reference range due to change in reagent. BUN/CREATININE RATIO (test code=BUN/CREA) 27.5 10-20 CALCIUM (test code=CA) 8.6 mg/dL 8.5-10.1 BASIC METABOLIC [id number] 05:15:00* Test Item Value Reference Range Comments SODIUM (test code=NA) 141 mmol/L 136-145 POTASSIUM (test code=K) 4.7 mmol/L 3.5-5.1 CHLORIDE (test code=CL) 108.0 mmol/L 98-107 CARBON DIOXIDE (test code=CO2) mmol/L 21-32 ANION GAP (test code=GAP) 10-20 GLUCOSE (test code=GLU) mg/dL 74-106 BLOOD UREA NITROGEN (test code=BUN) mg/dL 7-18 GLOMERULAR FILTRATION RATE (test code=GFR) mL/min >=60 CREATININE (test code=CREAT) mg/dL 0.55-1.02 BUN/CREATININE RATIO (test code=BUN/CREA) 10-20 CALCIUM (test code=CA) mg/dL 8.5-10.1 CBC W/AUTO [id number] 04:57:00* Test Item Value Reference Range Comments WHITE BLOOD CELL (test code=WBC) 8.3 K/mm3 4.5-12.5 RED BLOOD CELL (test code=RBC) 3.34 mill/mm3 3.7-5.2 HEMOGLOBIN (test code=HGB) 10.8 gram/dL 11.5-15.5 HEMATOCRIT (test code=HCT) 31.8 % 36.0-46.0 MEAN CELL VOLUME (test code=MCV) 95.2 fL 80-98 MEAN CELL HGB (test code=MCH) 32.3 picogram 27.0-33.0 MEAN CELL HGB CONCETRATION (test code=MCHC) 34.0 gram/dL 33.0-36.0 RED CELL DISTRIBUTION WIDTH (test code=RDW) 14.6 % 11.6-16.2 RED CELL DISTRIBUTION WIDTH SD (test code=RDW-SD) 49.3 fL 37.0-51.0 PLATELET COUNT (test code=PLT) 140 K/mm3 150-450 MEAN PLATELET VOLUME (test code=MPV) 12.8 fL 6.7-11.0 NEUTROPHIL % (test code=NT%) 70.9 % 39.0-69.0 IMMATURE GRANULOCYTE % (test code=IG%) 0.8 % 0.0-5.0 LYMPHOCYTE % (test code=LY%) 12.4 % 25.0-55.0 MONOCYTE % (test code=MO%) 12.5 % 0.0-10.0 EOSINOPHIL % (test code=EO%) 2.9 % 0.0-5.0 BASOPHIL % (test code=BA%) 0.5 % 0.0-1.0 NUCLEATED RBC % (test code=NRBC%) 0.0 % 0-0 NEUTROPHIL # (test code=NT#) 5.88 K/mm3 1.8-7.7 IMMATURE GRANULOCYTE # (test code=IG#) 0.07 x10 3/uL 0-0.03 LYMPHOCYTE # (test code=LY#) 1.03 K/mm3 1.0-5.0 MONOCYTE # (test code=MO#) 1.04 K/mm3 0-0.8 EOSINOPHIL # (test code=EO#) 0.24 K/mm3 0.0-0.5 BASOPHIL # (test code=BA#) 0.04 K/mm3 0.0-0.2 NUCLEATED RBC # (test code=NRBC#) 0.00 K/mm3 0.0-0.1 BASIC METABOLIC [id number] 06:18:00* Test Item Value Reference Range Comments SODIUM (test code=NA) 141 mmol/L 136-145 POTASSIUM (test code=K) 3.7 mmol/L 3.5-5.1 CHLORIDE (test code=CL) 108.0 mmol/L 98-107 CARBON DIOXIDE (test code=CO2) 28.0 mmol/L 21-32 ANION GAP (test code=GAP) 8.7 10-20 GLUCOSE (test code=GLU) 159 mg/dL 74-106 BLOOD UREA NITROGEN (test code=BUN) 11 mg/dL 7-18 GLOMERULAR FILTRATION RATE (test code=GFR) > 60 mL/min >=60 Estimated GFR by using Modified MDRD formula.Chronic kidney disease is defined as either kidney damageor GFR <60 mL/min/1.73 m2 for >3 months. CREATININE (test code=CREAT) 0.50 mg/dL 0.55-1.02 Note change in reference range due to change in reagent. BUN/CREATININE RATIO (test code=BUN/CREA) 22.0 10-20 CALCIUM (test code=CA) 8.6 mg/dL 8.5-10.1 BASIC METABOLIC [id number] 06:10:00* Test Item Value Reference Range Comments SODIUM (test code=NA) 141 mmol/L 136-145 POTASSIUM (test code=K) 3.7 mmol/L 3.5-5.1 CHLORIDE (test code=CL) 108.0 mmol/L 98-107 CARBON DIOXIDE (test code=CO2) mmol/L 21-32 ANION GAP (test code=GAP) 10-20 GLUCOSE (test code=GLU) mg/dL 74-106 BLOOD UREA NITROGEN (test code=BUN) mg/dL 7-18 GLOMERULAR FILTRATION RATE (test code=GFR) mL/min >=60 CREATININE (test code=CREAT) mg/dL 0.55-1.02 BUN/CREATININE RATIO (test code=BUN/CREA) 10-20 CALCIUM (test code=CA) mg/dL 8.5-10.1 BASIC METABOLIC [id number] 13:07:00* Test Item Value Reference Range Comments SODIUM (test code=NA) 139 mmol/L 136-145 POTASSIUM (test code=K) 3.7 mmol/L 3.5-5.1 CHLORIDE (test code=CL) 105.0 mmol/L 98-107 CARBON DIOXIDE (test code=CO2) 28.0 mmol/L 21-32 ANION GAP (test code=GAP) 9.7 10-20 GLUCOSE (test code=GLU) 166 mg/dL 74-106 BLOOD UREA NITROGEN (test code=BUN) 12 mg/dL 7-18 GLOMERULAR FILTRATION RATE (test code=GFR) > 60 mL/min >=60 Estimated GFR by using Modified MDRD formula.Chronic kidney disease is defined as either kidney damageor GFR <60 mL/min/1.73 m2 for >3 months. CREATININE (test code=CREAT) 0.50 mg/dL 0.55-1.02 Note change in reference range due to change in reagent. BUN/CREATININE RATIO (test code=BUN/CREA) 24.0 10-20 CALCIUM (test code=CA) 8.5 mg/dL 8.5-10.1 BASIC METABOLIC [id number] 12:59:00* Test Item Value Reference Range Comments SODIUM (test code=NA) 139 mmol/L 136-145 POTASSIUM (test code=K) 3.7 mmol/L 3.5-5.1 CHLORIDE (test code=CL) 105.0 mmol/L 98-107 CARBON DIOXIDE (test code=CO2) mmol/L 21-32 ANION GAP (test code=GAP) 10-20 GLUCOSE (test code=GLU) mg/dL 74-106 BLOOD UREA NITROGEN (test code=BUN) mg/dL 7-18 GLOMERULAR FILTRATION RATE (test code=GFR) mL/min >=60 CREATININE (test code=CREAT) mg/dL 0.55-1.02 BUN/CREATININE RATIO (test code=BUN/CREA) 10-20 CALCIUM (test code=CA) mg/dL 8.5-10.1 BASIC METABOLIC [id number] 05:54:00* Test Item Value Reference Range Comments SODIUM (test code=NA) 138 mmol/L 136-145 POTASSIUM (test code=K) 3.6 mmol/L 3.5-5.1 CHLORIDE (test code=CL) 105.0 mmol/L 98-107 CARBON DIOXIDE (test code=CO2) 28.0 mmol/L 21-32 ANION GAP (test code=GAP) 8.6 10-20 GLUCOSE (test code=GLU) 136 mg/dL 74-106 BLOOD UREA NITROGEN (test code=BUN) 10 mg/dL 7-18 GLOMERULAR FILTRATION RATE (test code=GFR) > 60 mL/min >=60 Estimated GFR by using Modified MDRD formula.Chronic kidney disease is defined as either kidney damageor GFR <60 mL/min/1.73 m2 for >3 months. CREATININE (test code=CREAT) 0.40 mg/dL 0.55-1.02 Note change in reference range due to change in reagent. BUN/CREATININE RATIO (test code=BUN/CREA) 25.0 10-20 CALCIUM (test code=CA) 8.4 mg/dL 8.5-10.1 BASIC METABOLIC [id number] 05:48:00* Test Item Value Reference Range Comments SODIUM (test code=NA) 138 mmol/L 136-145 POTASSIUM (test code=K) 3.6 mmol/L 3.5-5.1 CHLORIDE (test code=CL) 105.0 mmol/L 98-107 CARBON DIOXIDE (test code=CO2) mmol/L 21-32 ANION GAP (test code=GAP) 10-20 GLUCOSE (test code=GLU) mg/dL 74-106 BLOOD UREA NITROGEN (test code=BUN) mg/dL 7-18 GLOMERULAR FILTRATION RATE (test code=GFR) mL/min >=60 CREATININE (test code=CREAT) mg/dL 0.55-1.02 BUN/CREATININE RATIO (test code=BUN/CREA) 10-20 CALCIUM (test code=CA) mg/dL 8.5-10.1 BASIC METABOLIC [id number] 15:57:00* Test Item Value Reference Range Comments SODIUM (test code=NA) 140 mmol/L 136-145 POTASSIUM (test code=K) 3.2 mmol/L 3.5-5.1 CHLORIDE (test code=CL) 105.0 mmol/L 98-107 CARBON DIOXIDE (test code=CO2) 29.0 mmol/L 21-32 ANION GAP (test code=GAP) 9.2 10-20 GLUCOSE (test code=GLU) 163 mg/dL 74-106 BLOOD UREA NITROGEN (test code=BUN) 15 mg/dL 7-18 GLOMERULAR FILTRATION RATE (test code=GFR) > 60 mL/min >=60 Estimated GFR by using Modified MDRD formula.Chronic kidney disease is defined as either kidney damageor GFR <60 mL/min/1.73 m2 for >3 months. CREATININE (test code=CREAT) 0.50 mg/dL 0.55-1.02 Note change in reference range due to change in reagent. BUN/CREATININE RATIO (test code=BUN/CREA) 30.0 10-20 CALCIUM (test code=CA) 8.3 mg/dL 8.5-10.1 BASIC METABOLIC [id number] 15:51:00* Test Item Value Reference Range Comments SODIUM (test code=NA) 140 mmol/L 136-145 POTASSIUM (test code=K) 3.2 mmol/L 3.5-5.1 CHLORIDE (test code=CL) 105.0 mmol/L 98-107 CARBON DIOXIDE (test code=CO2) mmol/L 21-32 ANION GAP (test code=GAP) 10-20 GLUCOSE (test code=GLU) mg/dL 74-106 BLOOD UREA NITROGEN (test code=BUN) mg/dL 7-18 GLOMERULAR FILTRATION RATE (test code=GFR) mL/min >=60 CREATININE (test code=CREAT) mg/dL 0.55-1.02 BUN/CREATININE RATIO (test code=BUN/CREA) 10-20 CALCIUM (test code=CA) mg/dL 8.5-10.1 BASIC METABOLIC [id number] 13:40:00* Test Item Value Reference Range Comments SODIUM (test code=NA) 142 mmol/L 136-145 POTASSIUM (test code=K) 3.0 mmol/L 3.5-5.1 CHLORIDE (test code=CL) 105.0 mmol/L 98-107 CARBON DIOXIDE (test code=CO2) 28.0 mmol/L 21-32 ANION GAP (test code=GAP) 12.0 10-20 GLUCOSE (test code=GLU) 82 mg/dL 74-106 BLOOD UREA NITROGEN (test code=BUN) 17 mg/dL 7-18 GLOMERULAR FILTRATION RATE (test code=GFR) > 60 mL/min >=60 Estimated GFR by using Modified MDRD formula.Chronic kidney disease is defined as either kidney damageor GFR <60 mL/min/1.73 m2 for >3 months. CREATININE (test code=CREAT) 0.40 mg/dL 0.55-1.02 Note change in reference range due to change in reagent. BUN/CREATININE RATIO (test code=BUN/CREA) 42.5 10-20 CALCIUM (test code=CA) 8.7 mg/dL 8.5-10.1 BASIC METABOLIC [id number] 13:34:00* Test Item Value Reference Range Comments SODIUM (test code=NA) 142 mmol/L 136-145 POTASSIUM (test code=K) 3.0 mmol/L 3.5-5.1 CHLORIDE (test code=CL) 105.0 mmol/L 98-107 CARBON DIOXIDE (test code=CO2) mmol/L 21-32 ANION GAP (test code=GAP) 10-20 GLUCOSE (test code=GLU) mg/dL 74-106 BLOOD UREA NITROGEN (test code=BUN) mg/dL 7-18 GLOMERULAR FILTRATION RATE (test code=GFR) mL/min >=60 CREATININE (test code=CREAT) mg/dL 0.55-1.02 BUN/CREATININE RATIO (test code=BUN/CREA) 10-20 CALCIUM (test code=CA) mg/dL 8.5-10.1 BASIC METABOLIC [id number] 06:03:00* Test Item Value Reference Range Comments SODIUM (test code=NA) 143 mmol/L 136-145 POTASSIUM (test code=K) 3.0 mmol/L 3.5-5.1 CHLORIDE (test code=CL) 104.8 mmol/L 98-107 CARBON DIOXIDE (test code=CO2) 28.0 mmol/L 21-32 ANION GAP (test code=GAP) 13.2 10-20 GLUCOSE (test code=GLU) 87 mg/dL 74-106 BLOOD UREA NITROGEN (test code=BUN) 17 mg/dL 7-18 GLOMERULAR FILTRATION RATE (test code=GFR) > 60 mL/min >=60 Estimated GFR by using Modified MDRD formula.Chronic kidney disease is defined as either kidney damageor GFR <60 mL/min/1.73 m2 for >3 months. CREATININE (test code=CREAT) 0.40 mg/dL 0.55-1.02 Note change in reference range due to change in reagent. BUN/CREATININE RATIO (test code=BUN/CREA) 42.5 10-20 CALCIUM (test code=CA) 8.6 mg/dL 8.5-10.1 BASIC METABOLIC [id number] 06:00:00* Test Item Value Reference Range Comments SODIUM (test code=NA) mmol/L 136-145 POTASSIUM (test code=K) mmol/L 3.5-5.1 CHLORIDE (test code=CL) mmol/L 98-107 CARBON DIOXIDE (test code=CO2) 28.0 mmol/L 21-32 ANION GAP (test code=GAP) 10-20 GLUCOSE (test code=GLU) 87 mg/dL 74-106 BLOOD UREA NITROGEN (test code=BUN) 17 mg/dL 7-18 GLOMERULAR FILTRATION RATE (test code=GFR) > 60 mL/min >=60 Estimated GFR by using Modified MDRD formula.Chronic kidney disease is defined as either kidney damageor GFR <60 mL/min/1.73 m2 for >3 months. CREATININE (test code=CREAT) 0.40 mg/dL 0.55-1.02 Note change in reference range due to change in reagent. BUN/CREATININE RATIO (test code=BUN/CREA) 42.5 10-20 CALCIUM (test code=CA) mg/dL 8.5-10.1 PROTHROMBIN [id number] 05:54:00* Test Item Value Reference Range Comments PROTHROMBIN TIME PATIENT (test code=PTP) 13.7 seconds 9.0-14.0 INTERNATIONAL NORMAL RATIO (test code=INR) 1.2 0.8-1.2 The therapeutic range for oral anticoagulant therapy formost indications is an international normalized ratio (INR)of between 2.0 and 3.0. The recommended therapeutic INRrange for various clinical situations is listed below: Clinical Situation INR range Pulmonary e mbolism treatment (2.0-3.0)Venous thrombosis treatmentVenous thrombosis prophylaxis (high risk surgery)Prevention of systemic embolism from: Acute myocardial infarction Valvular heart disease Atrial fibrillation Mechanical prosthetic heart valves (2.5-3.5) IS PATIENT ON ANTICOAGULANTS? NCBC W/AUTO [id number] 05:34:00* Test Item Value Reference Range Comments WHITE BLOOD CELL (test code=WBC) 9.4 K/mm3 4.5-12.5 RED BLOOD CELL (test code=RBC) 3.59 mill/mm3 3.7-5.2 HEMOGLOBIN (test code=HGB) 11.2 gram/dL 11.5-15.5 HEMATOCRIT (test code=HCT) 34.2 % 36.0-46.0 MEAN CELL VOLUME (test code=MCV) 95.3 fL 80-98 MEAN CELL HGB (test code=MCH) 31.2 picogram 27.0-33.0 MEAN CELL HGB CONCETRATION (test code=MCHC) 32.7 gram/dL 33.0-36.0 RED CELL DISTRIBUTION WIDTH (test code=RDW) 13.9 % 11.6-16.2 RED CELL DISTRIBUTION WIDTH SD (test code=RDW-SD) 48.7 fL 37.0-51.0 PLATELET COUNT (test code=PLT) 118 K/mm3 150-450 MEAN PLATELET VOLUME (test code=MPV) 11.9 fL 6.7-11.0 NEUTROPHIL % (test code=NT%) 83.6 % 39.0-69.0 IMMATURE GRANULOCYTE % (test code=IG%) 0.3 % 0.0-5.0 LYMPHOCYTE % (test code=LY%) 6.9 % 25.0-55.0 MONOCYTE % (test code=MO%) 6.1 % 0.0-10.0 EOSINOPHIL % (test code=EO%) 2.7 % 0.0-5.0 BASOPHIL % (test code=BA%) 0.4 % 0.0-1.0 NUCLEATED RBC % (test code=NRBC%) 0.0 % 0-0 NEUTROPHIL # (test code=NT#) 7.82 K/mm3 1.8-7.7 IMMATURE GRANULOCYTE # (test code=IG#) 0.03 x10 3/uL 0-0.03 LYMPHOCYTE # (test code=LY#) 0.65 K/mm3 1.0-5.0 MONOCYTE # (test code=MO#) 0.57 K/mm3 0-0.8 EOSINOPHIL # (test code=EO#) 0.25 K/mm3 0.0-0.5 BASOPHIL # (test code=BA#) 0.04 K/mm3 0.0-0.2 NUCLEATED RBC # (test code=NRBC#) 0.00 K/mm3 0.0-0.1 CBC W/AUTO [id number] 06:14:00* Test Item Value Reference Range Comments WHITE BLOOD CELL (test code=WBC) 7.7 K/mm3 4.5-12.5 RED BLOOD CELL (test code=RBC) 3.51 mill/mm3 3.7-5.2 HEMOGLOBIN (test code=HGB) 11.2 gram/dL 11.5-15.5 HEMATOCRIT (test code=HCT) 33.1 % 36.0-46.0 MEAN CELL VOLUME (test code=MCV) 94.3 fL 80-98 MEAN CELL HGB (test code=MCH) 31.9 picogram 27.0-33.0 MEAN CELL HGB CONCETRATION (test code=MCHC) 33.8 gram/dL 33.0-36.0 RED CELL DISTRIBUTION WIDTH (test code=RDW) 14.2 % 11.6-16.2 RED CELL DISTRIBUTION WIDTH SD (test code=RDW-SD) 48.5 fL 37.0-51.0 PLATELET COUNT (test code=PLT) 135 K/mm3 150-450 MEAN PLATELET VOLUME (test code=MPV) 11.5 fL 6.7-11.0 NEUTROPHIL % (test code=NT%) 81.2 % 39.0-69.0 IMMATURE GRANULOCYTE % (test code=IG%) 0.4 % 0.0-5.0 LYMPHOCYTE % (test code=LY%) 7.6 % 25.0-55.0 MONOCYTE % (test code=MO%) 7.6 % 0.0-10.0 EOSINOPHIL % (test code=EO%) 2.8 % 0.0-5.0 BASOPHIL % (test code=BA%) 0.4 % 0.0-1.0 NUCLEATED RBC % (test code=NRBC%) 0.0 % 0-0 NEUTROPHIL # (test code=NT#) 6.27 K/mm3 1.8-7.7 IMMATURE GRANULOCYTE # (test code=IG#) 0.03 x10 3/uL 0-0.03 LYMPHOCYTE # (test code=LY#) 0.59 K/mm3 1.0-5.0 MONOCYTE # (test code=MO#) 0.59 K/mm3 0-0.8 EOSINOPHIL # (test code=EO#) 0.22 K/mm3 0.0-0.5 BASOPHIL # (test code=BA#) 0.03 K/mm3 0.0-0.2 NUCLEATED RBC # (test code=NRBC#) 0.00 K/mm3 0.0-0.1 MANUAL DIFF REQUIRED (test code=MDIFF) NO BASIC METABOLIC [id number] 06:14:00* Test Item Value Reference Range Comments SODIUM (test code=NA) 142 mmol/L 136-145 POTASSIUM (test code=K) 3.3 mmol/L 3.5-5.1 CHLORIDE (test code=CL) 108.0 mmol/L 98-107 CARBON DIOXIDE (test code=CO2) 25.0 mmol/L 21-32 ANION GAP (test code=GAP) 12.3 10-20 GLUCOSE (test code=GLU) 83 mg/dL 74-106 BLOOD UREA NITROGEN (test code=BUN) 15 mg/dL 7-18 GLOMERULAR FILTRATION RATE (test code=GFR) > 60 mL/min >=60 Estimated GFR by using Modified MDRD formula.Chronic kidney disease is defined as either kidney damageor GFR <60 mL/min/1.73 m2 for >3 months. CREATININE (test code=CREAT) 0.40 mg/dL 0.55-1.02 Note change in reference range due to change in reagent. BUN/CREATININE RATIO (test code=BUN/CREA) 37.5 10-20 CALCIUM (test code=CA) 8.5 mg/dL 8.5-10.1 BASIC METABOLIC [id number] 06:10:00* Test Item Value Reference Range Comments SODIUM (test code=NA) 142 mmol/L 136-145 POTASSIUM (test code=K) 3.3 mmol/L 3.5-5.1 CHLORIDE (test code=CL) 108.0 mmol/L 98-107 CARBON DIOXIDE (test code=CO2) mmol/L 21-32 ANION GAP (test code=GAP) 10-20 GLUCOSE (test code=GLU) mg/dL 74-106 BLOOD UREA NITROGEN (test code=BUN) mg/dL 7-18 GLOMERULAR FILTRATION RATE (test code=GFR) mL/min >=60 CREATININE (test code=CREAT) mg/dL 0.55-1.02 BUN/CREATININE RATIO (test code=BUN/CREA) 10-20 CALCIUM (test code=CA) 8.5 mg/dL 8.5-10.1 BASIC METABOLIC [id number] 06:57:00* Test Item Value Reference Range Comments SODIUM (test code=NA) 142 mmol/L 136-145 POTASSIUM (test code=K) 3.1 mmol/L 3.5-5.1 CHLORIDE (test code=CL) 105.0 mmol/L 98-107 CARBON DIOXIDE (test code=CO2) 29.0 mmol/L 21-32 ANION GAP (test code=GAP) 11.1 10-20 GLUCOSE (test code=GLU) 92 mg/dL 74-106 BLOOD UREA NITROGEN (test code=BUN) 21 mg/dL 7-18 RESULT VERIFIED BY REPEAT ANALYSIS GLOMERULAR FILTRATION RATE (test code=GFR) > 60 mL/min >=60 Estimated GFR by using Modified MDRD formula.Chronic kidney disease is defined as either kidney damageor GFR <60 mL/min/1.73 m2 for >3 months. CREATININE (test code=CREAT) 0.50 mg/dL 0.55-1.02 Note change in reference range due to change in reagent. BUN/CREATININE RATIO (test code=BUN/CREA) 42.0 10-20 CALCIUM (test code=CA) 8.7 mg/dL 8.5-10.1 CBC W/AUTO [id number] 05:06:00* Test Item Value Reference Range Comments WHITE BLOOD CELL (test code=WBC) 8.2 K/mm3 4.5-12.5 RED BLOOD CELL (test code=RBC) 3.30 mill/mm3 3.7-5.2 HEMOGLOBIN (test code=HGB) 10.6 gram/dL 11.5-15.5 HEMATOCRIT (test code=HCT) 30.6 % 36.0-46.0 MEAN CELL VOLUME (test code=MCV) 92.7 fL 80-98 MEAN CELL HGB (test code=MCH) 32.1 picogram 27.0-33.0 MEAN CELL HGB CONCETRATION (test code=MCHC) 34.6 gram/dL 33.0-36.0 RED CELL DISTRIBUTION WIDTH (test code=RDW) 13.9 % 11.6-16.2 RED CELL DISTRIBUTION WIDTH SD (test code=RDW-SD) 47.4 fL 37.0-51.0 PLATELET COUNT (test code=PLT) 160 K/mm3 150-450 MEAN PLATELET VOLUME (test code=MPV) 11.5 fL 6.7-11.0 NEUTROPHIL % (test code=NT%) 77.7 % 39.0-69.0 IMMATURE GRANULOCYTE % (test code=IG%) 0.2 % 0.0-5.0 LYMPHOCYTE % (test code=LY%) 11.9 % 25.0-55.0 MONOCYTE % (test code=MO%) 8.7 % 0.0-10.0 EOSINOPHIL % (test code=EO%) 1.1 % 0.0-5.0 BASOPHIL % (test code=BA%) 0.4 % 0.0-1.0 NUCLEATED RBC % (test code=NRBC%) 0.0 % 0-0 NEUTROPHIL # (test code=NT#) 6.39 K/mm3 1.8-7.7 IMMATURE GRANULOCYTE # (test code=IG#) 0.02 x10 3/uL 0-0.03 LYMPHOCYTE # (test code=LY#) 0.98 K/mm3 1.0-5.0 MONOCYTE # (test code=MO#) 0.72 K/mm3 0-0.8 EOSINOPHIL # (test code=EO#) 0.09 K/mm3 0.0-0.5 BASOPHIL # (test code=BA#) 0.03 K/mm3 0.0-0.2 NUCLEATED RBC # (test code=NRBC#) 0.00 K/mm3 0.0-0.1 MANUAL DIFF REQUIRED (test code=MDIFF) NO BASIC METABOLIC [id number] 06:14:00* Test Item Value Reference Range Comments SODIUM (test code=NA) 146 mmol/L 136-145 POTASSIUM (test code=K) 3.2 mmol/L 3.5-5.1 CHLORIDE (test code=CL) 110.0 mmol/L 98-107 CARBON DIOXIDE (test code=CO2) 24.0 mmol/L 21-32 ANION GAP (test code=GAP) 15.2 10-20 GLUCOSE (test code=GLU) 80 mg/dL 74-106 BLOOD UREA NITROGEN (test code=BUN) 37 mg/dL 7-18 GLOMERULAR FILTRATION RATE (test code=GFR) > 60 mL/min >=60 Estimated GFR by using Modified MDRD formula.Chronic kidney disease is defined as either kidney damageor GFR <60 mL/min/1.73 m2 for >3 months. CREATININE (test code=CREAT) 0.70 mg/dL 0.55-1.02 Note change in reference range due to change in reagent. BUN/CREATININE RATIO (test code=BUN/CREA) 52.9 10-20 CALCIUM (test code=CA) 9.5 mg/dL 8.5-10.1 CBC W/AUTO [id number] 05:51:00* Test Item Value Reference Range Comments WHITE BLOOD CELL (test code=WBC) 9.7 K/mm3 4.5-12.5 RED BLOOD CELL (test code=RBC) 3.44 mill/mm3 3.7-5.2 HEMOGLOBIN (test code=HGB) 10.9 gram/dL 11.5-15.5 HEMATOCRIT (test code=HCT) 33.0 % 36.0-46.0 MEAN CELL VOLUME (test code=MCV) 95.9 fL 80-98 MEAN CELL HGB (test code=MCH) 31.7 picogram 27.0-33.0 MEAN CELL HGB CONCETRATION (test code=MCHC) 33.0 gram/dL 33.0-36.0 RED CELL DISTRIBUTION WIDTH (test code=RDW) 14.3 % 11.6-16.2 RED CELL DISTRIBUTION WIDTH SD (test code=RDW-SD) 49.7 fL 37.0-51.0 PLATELET COUNT (test code=PLT) 186 K/mm3 150-450 MEAN PLATELET VOLUME (test code=MPV) 11.3 fL 6.7-11.0 NEUTROPHIL % (test code=NT%) 86.0 % 39.0-69.0 IMMATURE GRANULOCYTE % (test code=IG%) 0.5 % 0.0-5.0 LYMPHOCYTE % (test code=LY%) 5.5 % 25.0-55.0 MONOCYTE % (test code=MO%) 7.7 % 0.0-10.0 EOSINOPHIL % (test code=EO%) 0.1 % 0.0-5.0 BASOPHIL % (test code=BA%) 0.2 % 0.0-1.0 NUCLEATED RBC % (test code=NRBC%) 0.0 % 0-0 NEUTROPHIL # (test code=NT#) 8.30 K/mm3 1.8-7.7 IMMATURE GRANULOCYTE # (test code=IG#) 0.05 x10 3/uL 0-0.03 LYMPHOCYTE # (test code=LY#) 0.53 K/mm3 1.0-5.0 MONOCYTE # (test code=MO#) 0.74 K/mm3 0-0.8 EOSINOPHIL # (test code=EO#) 0.01 K/mm3 0.0-0.5 BASOPHIL # (test code=BA#) 0.02 K/mm3 0.0-0.2 NUCLEATED RBC # (test code=NRBC#) 0.00 K/mm3 0.0-0.1 MANUAL DIFF REQUIRED (test code=MDIFF) NO [id number] 20:47:00* Test Item Value Reference Range Comments POTASSIUM (test code=K) 3.4 mmol/L 3.5-5.1 - US RETRO [id number] 15:02:00 Name: BIANKA DE LEON [facility] : 1945 Age/S: 73 / F [address] [facility] Unit #: [id number] Loc: [place] [address] Phys: Per Araiza MD Acct: [id number] Dis Date: Status: ADM IN PHONE #: [phone] Exam Date: 09/17/2019 1144 FAX #: [phone] Reason: ROBER EXAMS: CPT CODE: [id number] [facility] [address] HISTORY: Acute kidney insufficiency. COMPARISON: None available. Location: [facility] [place]. Note: Study slightly limited due to combative patient. Both kidneys are free from hydronephrosis and calyceal stones. Mild hyperechogenicity on the left with suggest chronic medical renal disease. Relatively normal echogenicity and texture on the right side. No perinephric collections. Right kidney measured 9.2 x 3.9 x 3.6 cm. Left kidney measured 9.8 x 6 x 4.8 cm. Unremarkable urinary bladder distending incompletely. No wall thickening or mural nodules. IMPRESSION: No hydronephrosis or calyceal stones on either side. Mild chronic medical renal disease especially on the left. Unremarkable incompletely distended urinary bladder. Elect ronically Signed by Aleksander Villalobos on 09/17/2019 at 1502 Reported and signed by: Hunter Vlilalobos M.D. CC: Orville Odell DO; Per Araiza MD Technologist: HEMANT MORSE RT(R),Orville VELAZQUEZ Trnalb Date/Time: 09/17/2019 (1502) [email or web address] Orig Print D/T: S: 09/17/2019 (3535) Probe: PAGE 1 Signed Report - XR ABDOMEN AP 1 [id number] 09:09:00 FAX: Orville Mayfield [phone] [place]: [address]: ADM FAX: Per Araiza MD Name: BIANKA DE LEON [facility] : 1945 Age/S: 73/F Mindy Ovalles Unit #: [id number] Loc: [place] [address] Phys: Per Araiza MD Acct: [id number] Dis Date: Status: ADM IN PHONE #: [phone] Exam Date: 09/16/2019 0840 FAX #: [phone] Reason: pain EXAMS: CPT CODE: [id number] XR ABDOMEN AP 1 V 08107 HISTORY: Pain. COMPARISON: None available. Location: [facility]. No bowel obstruction. Bowel gas pattern is within normal limits. Catheter overlaps with the midabdomen. The exact location is not clear. No pathologic calcifications. IMPRESSION: No bowel obstruction. Catheter overlaps with the midabdomen on the right side. The exact location is not clear on this exam. at 0909 Reported and signed by: Hunter Villalobos M.D. CC: Orville Odell DO; Per Araiza MD Technologist: MERRY ALLEN JR Trnscrd Date/Time/By: 020 (0909) : By: [email or web address] Orig Print D/T: S: 09/17/2019 (12) PAGE 1 Signed Report SED [id number] 08:26:00* Test Item Value Reference Range Comments SED RATE (test code=SEDW) 11 mm/hr 0-20 WINTROBE METHOD: NORMAL RANGE FOR MEN: 0-9 MM/HR WOMAN: 0-20 MM/HR SED RATE [id number] 08:26:00* Test Item Value Reference Range Comments SED RATE WESTERGREN (test code=SEDW) 11 mm/hr 0-20 [id number] 08:01:00* Test Item Value Reference Range Comments MAGNESIUM (test code=MAG) 2.5 mg/dL 1.8-2.4 BASIC METABOLIC [id number] 07:37:00* Test Item Value Reference Range Comments SODIUM (test code=NA) 144 mmol/L 136-145 POTASSIUM (test code=K) 2.7 mmol/L 3.5-5.1 Results called to [id number] V.LAB.OA 09/17/19 0737Critical results verified and read back by Nurse? Y CHLORIDE (test code=CL) 107.0 mmol/L 98-107 CARBON DIOXIDE (test code=CO2) 22.0 mmol/L 21-32 ANION GAP (test code=GAP) 17.7 10-20 GLUCOSE (test code=GLU) 103 mg/dL 74-106 BLOOD UREA NITROGEN (test code=BUN) 46 mg/dL 7-18 GLOMERULAR FILTRATION RATE (test code=GFR) > 60 mL/min >=60 Estimated GFR by using Modified MDRD formula.Chronic kidney disease is defined as either kidney damageor GFR <60 mL/min/1.73 m2 for >3 months. CREATININE (test code=CREAT) 0.80 mg/dL 0.55-1.02 Note change in reference range due to change in reagent. BUN/CREATININE RATIO (test code=BUN/CREA) 57.5 10-20 CALCIUM (test code=CA) 8.9 mg/dL 8.5-10.1 CBC W/AUTO [id number] 07:14:00* Test Item Value Reference Range Comments WHITE BLOOD CELL (test code=WBC) 12.5 K/mm3 4.5-12.5 RED BLOOD CELL (test code=RBC) 3.51 mill/mm3 3.7-5.2 HEMOGLOBIN (test code=HGB) 11.0 gram/dL 11.5-15.5 HEMATOCRIT (test code=HCT) 33.5 % 36.0-46.0 MEAN CELL VOLUME (test code=MCV) 95.4 fL 80-98 MEAN CELL HGB (test code=MCH) 31.3 picogram 27.0-33.0 MEAN CELL HGB CONCETRATION (test code=MCHC) 32.8 gram/dL 33.0-36.0 RED CELL DISTRIBUTION WIDTH (test code=RDW) 14.0 % 11.6-16.2 RED CELL DISTRIBUTION WIDTH SD (test code=RDW-SD) 48.6 fL 37.0-51.0 PLATELET COUNT (test code=PLT) 215 K/mm3 150-450 MEAN PLATELET VOLUME (test code=MPV) 11.1 fL 6.7-11.0 NEUTROPHIL % (test code=NT%) 87.3 % 39.0-69.0 IMMATURE GRANULOCYTE % (test code=IG%) 0.6 % 0.0-5.0 LYMPHOCYTE % (test code=LY%) 3.1 % 25.0-55.0 MONOCYTE % (test code=MO%) 8.8 % 0.0-10.0 EOSINOPHIL % (test code=EO%) 0.0 % 0.0-5.0 BASOPHIL % (test code=BA%) 0.2 % 0.0-1.0 NUCLEATED RBC % (test code=NRBC%) 0.0 % 0-0 NEUTROPHIL # (test code=NT#) 10.94 K/mm3 1.8-7.7 IMMATURE GRANULOCYTE # (test code=IG#) 0.08 x10 3/uL 0-0.03 LYMPHOCYTE # (test code=LY#) 0.39 K/mm3 1.0-5.0 MONOCYTE # (test code=MO#) 1.10 K/mm3 0-0.8 EOSINOPHIL # (test code=EO#) 0.00 K/mm3 0.0-0.5 BASOPHIL # (test code=BA#) 0.03 K/mm3 0.0-0.2 NUCLEATED RBC # (test code=NRBC#) 0.00 K/mm3 0.0-0.1 MANUAL DIFF REQUIRED (test code=MDIFF) NO PROCALCITONIN (PCT)2019-09-17 03:28:00* Test Item Value Reference Range Comments PROCALCITONIN (PCT) (test code=PROCAL) < 0.05 ng/ml Concentration Interpretation (ng/mL) <0.51 Sepsis is not likely. Local bacterial infection is possible. (LOW RISK for progression to Sepsis) 0.51 - 2.00 Sepsis is possible, but other conditions are known to elevate PCT as well. (MODERATE RISK for progression to Sepsis) > 2.00 Sepsis is likely, unless other causes are known. (HIGH RISK for progression to Severe Sepsis or Septic Shock) 10.00 High likelihood of Severe Sepsis or Septic or higher Shock. *Increased PCT levels may not always be related to systemic bacterial infection.*Low PCT levels do not automatically exclude the presence of bacterial infection.*All results should be interpreted taking into account the patients history. CREATINE KINASE (CK)2019-09-17 02:28:00* Test Item Value Reference Range Comments CREATINE KINASE (CK) (test code=CK) 355 IUnit/L 26-208 FE W/TOTAL IRON BINDING CAP.2019-09-17 02:28:00* Test Item Value Reference Range Comments SERUM IRON (test code=IRON) 75 ug/dL 50-175 TOTAL IRON BINDING CAPACITY (test code=TIBC) 285 mcg/dL 250-450 IRON SATURATION (test code=FESAT) 26.32 % 13-45 VITAMIN [id number] 02:28:00* Test Item Value Reference Range Comments VITAMIN B12 (test code=VITB12) 1168 pg/mL 193-986 FOLIC [id number] 02:28:00* Test Item Value Reference Range Comments FOLIC ACID (test code=FOL) 33.2 ng/mL 3.10-17.50 THYROID STIMULATING [id number] 02:28:00* Test Item Value Reference Range Comments THYROID STIMULATING HORMONE (test code=TSH) 0.747 uIU/mL 0.36-3.74 TSH REFERENCE RANGES: EUTHYROID: 0.35 - 4.3 mIU/mL HYPO : > 5.5 mIU/mL HYPER : < 0.35 mIU/mL [id number] 02:28:00* Test Item Value Reference Range Comments FERRITIN (test code=VICK) 121 ng/mL 8-388 PROTHROMBIN [id number] 01:54:00* Test Item Value Reference Range Comments PROTHROMBIN TIME PATIENT (test code=PTP) 15.3 seconds 9.0-14.0 INTERNATIONAL NORMAL RATIO (test code=INR) 1.3 0.8-1.2 The therapeutic range for oral anticoagulant therapy formost indications is an international normalized ratio (INR)of between 2.0 and 3.0. The recommended therapeutic INRrange for various clinical situations is listed below: Clinical Situation INR range Pulmonary e mbolism treatment (2.0-3.0)Venous thrombosis treatmentVenous thrombosis prophylaxis (high risk surgery)Prevention of systemic embolism from: Acute myocardial infarction Valvular heart disease Atrial fibrillation Mechanical prosthetic heart valves (2.5-3.5) IS PATIENT ON ANTICOAGULANTS? NC REACTIVE [id number] 01:50:00* Test Item Value Reference Range Comments C REACTIVE PROTEIN (test code=CRP) 0.36 mg/dL 0-0.3 URINALYSIS [id number] 21:12:00* Test Item Value Reference Range Comments UA COLOR (test code=COLU) [place] YELLOW UA APPEARANCE (test code=APPU) CLEAR CLEAR UA GLUCOSE DIPSTICK (test code=DGLUU) NEGATIVE mg/dL NEGATIVE UA BILIRUBIN DIPSTICK (test code=BILU) NEGATIVE mg/dL NEGATIVE UA KETONE DIPSTICK (test code=KETU) 60 (2+) mg/dL NEGATIVE UA SPECIFIC GRAVITY (test code=SGU) 1.035 1.001-1.035 UA BLOOD DIPSTICK (test code=XIOMARA) 0.03 mg/dL (Trace) mg/dL NEGATIVE UA PH DIPSTICK (test code=KINZA) 6.0 5.0-8.0 UA PROTEIN DIPSTICK (test code=PROU) 100 (2+) mg/dL NEGATIVE UA UROBILINIOGEN DIPSTICK (test code=URO) 4.0 (2+) mg/dL NEGATIVE UA NITRITE DIPSTICK (test code=LUIS) NEGATIVE NEGATIVE UA LEUKOCYTE ESTERASE W REFLEX (test code=LEUUR) 25 David/uL (Trace) David/uL NEGATIVE UA WBC (test code=WBCU) 51-100 per HPF 0-5 UA RBC (test code=RBCU) 6-10 #/HPF 0-5 UA EPITHELIAL CELLS (test code=EPIU) FEW per HPF FEW UA BACTERIA (test code=BACU) NONE SEEN #/HPF NONE UA HYALINE CAST (test code=HYALU) >20 #/LPF 0-5 UA MUCUS (test code=MUCU) MODERATE #/LPF FEW Urine Source? Clean CatchURINALYSIS [id number] 21:10:00* Test Item Value Reference Range Comments UA COLOR (test code=COLU) [place] YELLOW UA APPEARANCE (test code=APPU) CLEAR CLEAR UA GLUCOSE DIPSTICK (test code=DGLUU) NEGATIVE mg/dL NEGATIVE UA BILIRUBIN DIPSTICK (test code=BILU) NEGATIVE mg/dL NEGATIVE UA KETONE DIPSTICK (test code=KETU) 60 (2+) mg/dL NEGATIVE UA SPECIFIC GRAVITY (test code=SGU) 1.035 1.001-1.035 UA BLOOD DIPSTICK (test code=XIOMARA) 0.03 mg/dL (Trace) mg/dL NEGATIVE UA PH DIPSTICK (test code=KINZA) 6.0 5.0-8.0 UA PROTEIN DIPSTICK (test code=PROU) 100 (2+) mg/dL NEGATIVE UA UROBILINIOGEN DIPSTICK (test code=URO) 4.0 (2+) mg/dL NEGATIVE UA NITRITE DIPSTICK (test code=LUIS) NEGATIVE NEGATIVE UA LEUKOCYTE ESTERASE W REFLEX (test code=LEUUR) 25 David/uL (Trace) David/uL NEGATIVE UA WBC (test code=WBCU) per HPF 0-5 UA RBC (test code=RBCU) per HPF 0-5 UA EPITHELIAL CELLS (test code=EPIU) per HPF Few UA BACTERIA (test code=BACU) per HPF NONE Urine Source? Clean Catch- XR CHEST 1 [id number] 21:05:00 FAX: Jevon Lopes [phone] [place]: St: REG FAX: Orville Mayfield [facility] [phone] Name: BIANKA DE LEON [facility] : 1945 Age/S: 73/F [address] [facility] Unit #: [id number] Loc: [place] [address] Phys: Jevon Velasquez MD Acct: [id number] Dis Date: Status: REG ER PHONE #: [phone] Exam Date: 09/16/20191947 FAX #: [phone] Reason: WEAKNESS EXAMS: CPT CODE: [id number] XR CHEST 1 V 80805 EXAM: Chest x-ray, one view; INFORMATION: Weakness; failure to thrive; IMPRESSION: 1. No evidence of active cardiopulmonary disease. 2. No significant change compared with a study from July 24, 2019. Mild cardiomegaly. Location code: [facility] at 2104 Reported and signed by: Kevin Feliciano M.D. CC: Jevon Velasquez MD; Orville Odell DO Technologist: Oralia olivera RT(R) Trnscrd Date/Time/By: 09/16/2019 (2 ) : By: JeriGRW Orig Print D/T: S: 09/16/2019 (2107) PAGE 1 Signed Report BASIC METABOLIC [id number] 21:04:00* Test Item Value Reference Range Comments SODIUM (test code=NA) 141 mmol/L 136-145 POTASSIUM (test code=K) 2.9 mmol/L 3.5-5.1 Results called to [id number] by ERIN 09/16/19ritical results verified and read back by Nurse? Y CHLORIDE (test code=CL) 99.0 mmol/L 98-107 CARBON DIOXIDE (test code=CO2) 23.0 mmol/L 21-32 Previously reported result: 23.0 mmol/LEdited by: ERIN on 09/16/19:2103 ANION GAP (test code=GAP) 21.9 10-20 GLUCOSE (test code=GLU) 108 mg/dL 74-106 BLOOD UREA NITROGEN (test code=BUN) 49 mg/dL 7-18 GLOMERULAR FILTRATION RATE (test code=GFR) 44 mL/min >=60 Estimated GFR by using Modified MDRD formula.Chronic kidney disease is defined as either kidney damageor GFR <60 mL/min/1.73 m2 for >3 months. CREATININE (test code=CREAT) 1.20 mg/dL 0.55-1.02 Note change in reference range due to change in reagent. BUN/CREATININE RATIO (test code=BUN/CREA) 40.8 10-20 CALCIUM (test code=CA) 9.8 mg/dL 8.5-10.1 [id number] 21:04:00* Test Item Value Reference Range Comments TROPONIN-I (test code=TROPI) 1.210 ng/mL 0-0.045 Results called to [id number] by [email or web address] 09/16/19 2103Critical results verified and read back by Nurse? Y BASIC METABOLIC [id number] 21:03:00* Test Item Value Reference Range Comments SODIUM (test code=NA) 141 mmol/L 136-145 POTASSIUM (test code=K) 2.9 mmol/L 3.5-5.1 Results called to [id number] by [email or web address] 09/16/19 2101Critical results verified and read back by Nurse? Y CHLORIDE (test code=CL) 99.0 mmol/L 98-107 CARBON DIOXIDE (test code=CO2) mmol/L 21-32 ANION GAP (test code=GAP) 10-20 GLUCOSE (test code=GLU) mg/dL 74-106 BLOOD UREA NITROGEN (test code=BUN) mg/dL 7-18 GLOMERULAR FILTRATION RATE (test code=GFR) mL/min >=60 CREATININE (test code=CREAT) mg/dL 0.55-1.02 BUN/CREATININE RATIO (test code=BUN/CREA) 10-20 CALCIUM (test code=CA) mg/dL 8.5-10.1 [id number] 21:03:00* Test Item Value Reference Range Comments TROPONIN-I (test code=TROPI) ng/mL 0-0.045 BASIC METABOLIC [id number] 21:03:00* Test Item Value Reference Range Comments SODIUM (test code=NA) 141 mmol/L 136-145 POTASSIUM (test code=K) 2.9 mmol/L 3.5-5.1 Results called to [id number] by [email or web address] 09/16/19 2101Critical results verified and read back by Nurse? Y CHLORIDE (test code=CL) 99.0 mmol/L 98-107 CARBON DIOXIDE (test code=CO2) 23.0 mmol/L 21-32 ANION GAP (test code=GAP) 10-20 GLUCOSE (test code=GLU) 108 mg/dL 74-106 BLOOD UREA NITROGEN (test code=BUN) 49 mg/dL 7-18 GLOMERULAR FILTRATION RATE (test code=GFR) 44 mL/min >=60 Estimated GFR by using Modified MDRD formula.Chronic kidney disease is defined as either kidney damageor GFR <60 mL/min/1.73 m2 for >3 months. CREATININE (test code=CREAT) 1.20 mg/dL 0.55-1.02 Note change in reference range due to change in reagent. BUN/CREATININE RATIO (test code=BUN/CREA) 40.8 10-20 CALCIUM (test code=CA) 9.8 mg/dL 8.5-10.1 [id number] 21:03:00* Test Item Value Reference Range Comments TROPONIN-I (test code=TROPI) 1.210 ng/mL 0-0.045 Results called to [id number] by [email or web address] 09/16/19 2103Critical results verified and read back by Nurse? Y CBC W/O [id number] 20:39:00* Test Item Value Reference Range Comments WHITE BLOOD CELL (test code=WBC) 15.1 K/mm3 4.5-12.5 RED BLOOD CELL (test code=RBC) 3.96 mill/mm3 3.7-5.2 HEMOGLOBIN (test code=HGB) 12.6 gram/dL 11.5-15.5 HEMATOCRIT (test code=HCT) 37.8 % 36.0-46.0 MEAN CELL VOLUME (test code=MCV) 95.5 fL 80-98 MEAN CELL HGB (test code=MCH) 31.8 picogram 27.0-33.0 MEAN CELL HGB CONCETRATION (test code=MCHC) 33.3 gram/dL 33.0-36.0 RED CELL DISTRIBUTION WIDTH (test code=RDW) 13.9 % 11.6-16.2 PLATELET COUNT (test code=PLT) 260 K/mm3 150-450 MEAN PLATELET VOLUME (test code=MPV) 11.0 fL 6.7-11.0 BASIC METABOLIC [id number] 08:27:00* Test Item Value Reference Range Comments SODIUM (test code=NA) 136 mEq/L 134-147 POTASSIUM (test code=K) 4.2 mEq/L 3.4-5.0 CHLORIDE (test code=CL) 104 mEq/L 100-108 CARBON DIOXIDE (test code=CO2) 26 mEq/L 21-33 ANION GAP (test code=GAP) 10 0-20 GLUCOSE (test code=GLU) 83 mg/dL 70-110 BLOOD UREA NITROGEN (test code=BUN) 12 mg/dL 7-18 GLOMERULAR FILTRATION RATE (test code=GFR) 98.5 70-80 Units of measure=ml/min/1.73 m2 CREATININE (test code=CREAT) 0.6 mg/dL 0.6-1.3 CALCIUM (test code=CA) 9.0 mg/dL 8.0-10.5 CBC W/AUTO [id number] 07:45:00* Test Item Value Reference Range Comments WHITE BLOOD CELL (test code=WBC) 6.68 x10 3/uL 4.5-11.0 RED BLOOD CELL (test code=RBC) 3.75 x10 6/uL 3.54-5.02 HEMOGLOBIN (test code=HGB) 11.7 g/dL 11.0-15.0 HEMATOCRIT (test code=HCT) 35.5 % 33.0-45.0 MEAN CELL VOLUME (test code=MCV) 94.7 fL 81.0-99.0 MEAN CELL HGB (test code=MCH) 31.2 pg 27.0-33.0 MEAN CELL HGB CONCETRATION (test code=MCHC) 33.0 g/dL 33.0-37.0 RED CELL DISTRIBUTION WIDTH CV (test code=RDW) 13.2 % 11.5-14.5 RED CELL DISTRIBUTION WIDTH SD (test code=RDW-SD) 45.6 fL 37.0-54.0 PLATELET COUNT (test code=PLT) 202 x10 3/uL 150-400 MEAN PLATELET VOLUME (test code=MPV) 11.0 fL 7.0-9.0 NEUTROPHIL % (test code=NT%) 62.6 % 56.0-77.0 IMMATURE GRANULOCYTE % (test code=IG%) 0.4 % 0.0-2.0 LYMPHOCYTE % (test code=LY%) 25.1 % 14.0-32.0 MONOCYTE % (test code=MO%) 9.0 % 4.8-9.0 EOSINOPHIL % (test code=EO%) 2.2 % 0.3-3.7 BASOPHIL % (test code=BA%) 0.7 % 0.0-2.0 NUCLEATED RBC % (test code=NRBC%) 0.0 % 0-0 NEUTROPHIL # (test code=NT#) 4.17 x10 3/uL 2.0-7.6 IMMATURE GRANULOCYTE # (test code=IG#) 0.03 x10 3/uL 0.00-0.03 LYMPHOCYTE # (test code=LY#) 1.68 x10 3/uL 1.0-3.8 MONOCYTE # (test code=MO#) 0.60 x10 3/uL 0.1-0.8 EOSINOPHIL # (test code=EO#) 0.15 x10 3/uL 0.0-0.2 BASOPHIL # (test code=BA#) 0.05 x10 3/uL 0.0-0.2 NUCLEATED RBC # (test code=NRBC#) 0.00 x10 3/uL 0.0-0.1 MANUAL DIFF REQUIRED (test code=MDIFF) NO [id number] 19:22:00* Test Item Value Reference Range Comments TROPONIN-I (test code=TROPI) 1.310 ng/mL 0.000-0.045 Negative: <=0.045 Positive: >=0.046 Correlation with serial results, other cardiac markers andclinical findings is necessary to determine the clinicalsignificance of this result. Results using different methodologies should not be comparedto one another as quantitative results may vary by method. COMMENTS: 3 troponins total (including troponin done in ED)[id number] 15:53:00* Test Item Value Reference Range Comments TROPONIN-I (test code=TROPI) 1.340 ng/mL 0.000-0.045 Negative: <=0.045 Positive: >=0.046 Correlation with serial results, other cardiac markers andclinical findings is necessary to determine the clinicalsignificance of this result. Results using different methodologies should not be comparedto one another as quantitative results may vary by method. COMMENTS: 3 troponins total (including troponin done in ED)LIPOPROTEIN LDL 2019-07-24 13:12:00* Test Item Value Reference Range Comments LIPOPROTEIN LDL (test code=LDL) 135 mg/dL 0-100 <100 [id number] NEAR OPTIMAL/ABOVE [id number] HIGH>XB=416 VERY HIGH*Guidelines provided by the National Cholesterol EducationProgram Adult Treatment Panel III B-TYPE NATRIURETIC [id number] 13:06:00* Test Item Value Reference Range Comments B-TYPE NATRIURETIC PEPTIDE (test code=BNP) 230.1 PG/ML 0-100 [id number] 12:49:00* Test Item Value Reference Range Comments TROPONIN-I (test code=TROPI) 1.380 ng/mL 0.000-0.045 Negative: <=0.045 Positive: >=0.046 Correlation with serial results, other cardiac markers andclinical findings is necessary to determine the clinicalsignificance of this result. Results using different methodologies should not be comparedto one another as quantitative results may vary by method. URINALYSIS [id number] 12:31:00* Test Item Value Reference Range Comments UA COLOR (test code=COLU) YELLOW YEL/STRAW UA APPEARANCE (test code=APPU) CLEAR CLEAR UA GLUCOSE DIPSTICK (test code=DGLUU) NEGATIVE NEGATIVE UA BILIRUBIN DIPSTICK (test code=BILU) NEGATIVE NEGATIVE UA KETONE DIPSTICK (test code=KETU) NEGATIVE NEGATIVE UA SPECIFIC GRAVITY (test code=SGU) 1.004 1.005-1.030 UA BLOOD DIPSTICK (test code=XIOMARA) NEGATIVE NEGATIVE UA PH DIPSTICK (test code=KINZA) 8.0 5.0-7.0 UA PROTEIN DIPSTICK (test code=PROU) NEGATIVE NEGATIVE UA UROBILINIOGEN DIPSTICK (test code=URO) 0.2 mg/dL 0.2-1.0 UA NITRITE DIPSTICK (test code=LUIS) NEGATIVE NEGATIVE UA LEUKOCYTE ESTERASE DIPSTICK (test code=LEUU) TRACE NEGATIVE UA RBC (test code=RBCU) 0-3 RBC/HPF 0-3 UA WBC NO REFLEX (test code=WBCUCL) 0-3 WBC/HPF 0-3 UA BACTERIA (test code=BACU) NONE SEEN /HPF NONE SEEN UA SQUAMOUS CELLS (test code=SQU) 0-5 /HPF NONE SEEN CBC W/AUTO [id number] 12:10:00* Test Item Value Reference Range Comments WHITE BLOOD CELL (test code=WBC) 7.80 x10 3/uL 4.5-11.0 RED BLOOD CELL (test code=RBC) 4.04 x10 6/uL 3.54-5.02 HEMOGLOBIN (test code=HGB) 12.9 g/dL 11.0-15.0 HEMATOCRIT (test code=HCT) 38.7 % 33.0-45.0 MEAN CELL VOLUME (test code=MCV) 95.8 fL 81.0-99.0 MEAN CELL HGB (test code=MCH) 31.9 pg 27.0-33.0 MEAN CELL HGB CONCETRATION (test code=MCHC) 33.3 g/dL 33.0-37.0 RED CELL DISTRIBUTION WIDTH CV (test code=RDW) 13.2 % 11.5-14.5 RED CELL DISTRIBUTION WIDTH SD (test code=RDW-SD) 46.5 fL 37.0-54.0 PLATELET COUNT (test code=PLT) 229 x10 3/uL 150-400 MEAN PLATELET VOLUME (test code=MPV) 10.7 fL 7.0-9.0 NEUTROPHIL % (test code=NT%) 78.7 % 56.0-77.0 IMMATURE GRANULOCYTE % (test code=IG%) 0.5 % 0.0-2.0 LYMPHOCYTE % (test code=LY%) 11.5 % 14.0-32.0 MONOCYTE % (test code=MO%) 7.2 % 4.8-9.0 EOSINOPHIL % (test code=EO%) 1.3 % 0.3-3.7 BASOPHIL % (test code=BA%) 0.8 % 0.0-2.0 NUCLEATED RBC % (test code=NRBC%) 0.0 % 0-0 NEUTROPHIL # (test code=NT#) 6.14 x10 3/uL 2.0-7.6 IMMATURE GRANULOCYTE # (test code=IG#) 0.04 x10 3/uL 0.00-0.03 LYMPHOCYTE # (test code=LY#) 0.90 x10 3/uL 1.0-3.8 MONOCYTE # (test code=MO#) 0.56 x10 3/uL 0.1-0.8 EOSINOPHIL # (test code=EO#) 0.10 x10 3/uL 0.0-0.2 BASOPHIL # (test code=BA#) 0.06 x10 3/uL 0.0-0.2 NUCLEATED RBC # (test code=NRBC#) 0.00 x10 3/uL 0.0-0.1 MANUAL DIFF REQUIRED (test code=MDIFF) NO TROPONIN-I [id number] 12:01:00* Test Item Value Reference Range Comments TROPONIN-I RAPID (test code=TROPIRAP) 0.10 ng/mL 0.00-0.08 Performed by certified drawing press operator at [facility] Negative: <=0.08 Positive: >=0.09An elevated troponin value alone is not sufficient todiagnose a myocardial infarction. Rather, the patient sclinical presentation (history, physical exam) and ECGshould be used in conjunction with troponin in thediagnostic evaluation of suspected myocardial infarction. Aserial sampling protocol is recommended to facilitate the identification of temporal changes in troponin levels characteristic of NM. - CT HEAD/BRAIN W/O [id number] 12:01:00 Name: BIANKA DE LEON [facility] : 1945 Age/S: 73 / F [address] [place] [address] Unit #: [id number] Loc: [place] [address] Phys: Hermann Gutierrez MD Acct: [id number] Dis Date: Status: REG ER PHONE #: [phone] Exam Date: 07/24/2019 1133 FAX #: [phone] Reason: dizzy EXAMS: CPT CODE: [id number] CT HEAD/BRAIN W/O CONT 30522 STUDY: - CT HEAD/BRAIN W/O CONT 07/24/2019 11:17 AM Ordering Physician: Hermann Gutierrez MD Patient Name: BIANKA DE LEON MR: [id number] : 1945; Age: 73 years y/o Female Clinical Indication: dizzy Comparison: March 16, 2019 CT head TECHNIQUE: Multiple contiguous transaxial noncontrast CT images were obtained through the head. Coronal and sagittal reformatted images were prepared. DOSE: CT imaging performed at this location utilizes radiation dose optimization technique which includes one or more of the followin) Automated exposure control; 2) Adjustment of the mA and/or kV according to patient's size; 3) Use of iterative reconstruction techniques. DLP (mGy-cm): 419 FINDINGS: BRAIN PARENCHYMA: Mild generalized volume loss. Gliosis in the right temporal, parietal, and occipital lobes. 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 No evidence of acute intracranial hemorrhage, mass lesion, mass effect, midline shift, or extra-axial fluid collection. VENTRICLES: The lateral ventricles, third ventricle, fourth ventricle, and basilar cisterns are appropriate for degree of atrophy present. PARANASAL SINUSES: The visualized portions of the paranasal sinuses are clear. MASTOIDS: Clear. ORBITS: The visualized portions of the orbits are normal. Bilateral lens prostheses. SOFT TISSUES: No significant abnormality. SKULL: No acute fracture or suspicious osseous lesion. Mild hyperostosis frontalis. PAGE 1 Signed Report (CONTINUED) Name: BIANKA DE LEON [facility] : 1945 Age/S: 73 / F [address] [place] [address] Blvd Unit #: [id number] Loc: [place] [address] Phys: Hermann Gutierrez MD Acct: [id number] Dis Date: Status: REG ER PHONE #: [phone] Exam Date: 07/24/2019 1133 FAX #: [phone] Reason: dizzy EXAMS: CPT CODE: [id number] HEAD/BRAIN W/O CONT 06341 < Continued> IMPRESSION: 1. No acute intracranial abnormality. 2. Gliosis in the right MCA territory. 3. 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 SL: [id number] at 1201 Reported and signed by: Wesly Dooley M.D. CC: Orville Odell DO Technologist:Gisella Kraft RT(R)(CT) CTDI: DLP: Trnscb Date/Time: 07/24/2019 (1201) [email or web address] Orig Print D/T: S: 07/24/2019 (6058) PAGE 2 Signed Report CHEMISTRY 8 [id number] 11:55:00* Test Item Value Reference Range Comments ISTAT-SODIUM (test code=NAP) MMOL/L 134-147 ISTAT-POTASSIUM (test code=KP) MMOL/L 3.4-5.0 ISTAT-CHLORIDE (test code=CLP) MMOL/L 100-108 ISTAT CARBON DIOXIDE (test code=ISTAT-CO2) mmol/L 21-33 ISTAT CALCIUM IONIZED (test code=ISTAT-STEVE) MG/DL 1.12-1.32 ISTAT-GLUCOSE (test code=GLUP) MG/DL 70-110 ISTAT-BUN (test code=BUNP) MG/DL 7-18 BEDSIDE CREATININE (test code=CREATBED) MG/DL 0.6-1.3 GLOMERULAR FILTRATION RATE POC (test code=GFRBED) 88 ML/MIN CHEMISTRY 8 [id number] 11:55:00* Test Item Value Reference Range Comments ISTAT-SODIUM (test code=NAP) 136 MMOL/L 134-147 ISTAT-POTASSIUM (test code=KP) 3.8 MMOL/L 3.4-5.0 ISTAT-CHLORIDE (test code=CLP) 98 MMOL/L 100-108 Performed by certified drawing press operator at [facility] ISTAT CARBON DIOXIDE (test code=ISTAT-CO2) 31.0 mmol/L 21-33 ISTAT CALCIUM IONIZED (test code=ISTAT-STEVE) 1.27 MG/DL 1.12-1.32 ISTAT-GLUCOSE (test code=GLUP) 96 MG/DL 70-110 ISTAT-BUN (test code=BUNP) 15 MG/DL 7-18 BEDSIDE CREATININE (test code=CREATBED) 0.7 MG/DL 0.6-1.3 GLOMERULAR FILTRATION RATE POC (test code=GFRBED) 88 ML/MIN - XR CHEST 1 [id number] 11:39:00 FAX: Orville Mayfield [phone] [place]: St: REG Name: [facility] Disputanta : [birth year] Age/S: 73/F [address] [place] [address] Blvd Unit #: [id number] Loc: [place] [address] Phys: Hermann Gutierrez MD Acct: [id number] Dis Date: Status: REG ER PHONE #: [phone] Exam Date: 07/24/2019 1134 FAX #: [phone] Reason: Weakness EXAMS: CPT CODE: [id number] XR CHEST 1 V [id number] CHEST RADIOGRAPH ONE VIEW 07/24/2019 AT 1119 HOURS. CLINICAL HISTORY: Weakness. COMPAR VIRGILIO STUDIES: Chest one view 03/16/2019. FINDINGS: One view o f the chest was obtained. The lungs are clear. There are no pleural effus ions. The cardiac silhouette is enlarged accounting for magnification. M ild aortic arch calcification. No destructive bone lesions. IMPRESSION: 1. No edema or consolidation. 2. Enlarged cardiac silhouette. 3. Mild atherosclerosis. SL: [id number] at 1139 Reported and signed by: Ac Flores M.D. CC: Orville Odell DO Technologist: Dina neil, RT(R) Trnscrd Date/Time/By: 07/24/2019 (1139 ) : By: [email or web address] Orig Print D/T: S: 07/24/2019 (3787) PAGE 1 Signed Report - XR CHEST 1 [id number] 12:50:00 FAX: Jared Schafer DO [phone] [place]: St: REG FAX: Orville Mayfield [phone] Name: [facility] Disputanta : 1945 Age/S: 73/F [address] [place] [address] Blvd Unit #: [id number] Loc: [place] [address] Phys: Jared Arndt DO Acct: [id number] Dis Date: Status: REG ER PHONE #: [phone] Exam Date: 03/16/2019 1241 FAX #: [phone] Reason: Altered Mental Status EXAMS: CPT CODE: [id number] XR CHEST 1 V 44242 PROCEDURE: CHEST SINGLE VIEW INDICATION: Altered m ental status COMPARISON: 04/01/2019 FINDINGS: Enlarge ment of right paratracheal stripe is unchanged from an x-ray performed 12/02. No consolidation or pleural effusion is present. Heart size is e nlarged. Aorta is tortuous and contains calcifications. No vascular willis estion is present. IMPRESSION: No active disease. SL: [id number] at 1250 Reported and signed by: Db Lu M.D. CC: Jared Arndt DO; Orville Odell [facility] nologist: RT Isiah(R) Trnscrd Date/Ti me/By: 03/16/2019 (6807) : By: [email or web address] Orig Print D/T: S: 03/16/2019 (4581) PAGE 1 Signed Report [id number] 12:43:00* Test Item Value Reference Range Comments AMMONIA (test code=AMM) 16 umol/L 0-35 LIPOPROTEIN [id number] 12:01:00* Test Item Value Reference Range Comments LIPOPROTEIN LDL (test code=LDL) 114 mg/dL 0-100 <100 [id number] NEAR OPTIMAL/ABOVE [id number] HIGH>NK=624 VERY HIGH*Guidelines provided by the National Cholesterol EducationProgram Adult Treatment Panel III URINALYSIS [id number] 11:50:00* Test Item Value Reference Range Comments UA COLOR (test code=COLU) YELLOW YEL/STRAW UA APPEARANCE (test code=APPU) CLEAR CLEAR UA GLUCOSE DIPSTICK (test code=DGLUU) NEGATIVE NEGATIVE UA BILIRUBIN DIPSTICK (test code=BILU) NEGATIVE NEGATIVE UA KETONE DIPSTICK (test code=KETU) TRACE NEGATIVE UA SPECIFIC GRAVITY (test code=SGU) 1.008 1.005-1.030 UA BLOOD DIPSTICK (test code=XIOMARA) NEGATIVE NEGATIVE UA PH DIPSTICK (test code=KINZA) 7.0 5.0-7.0 UA PROTEIN DIPSTICK (test code=PROU) NEGATIVE NEGATIVE UA UROBILINIOGEN DIPSTICK (test code=URO) 0.2 mg/dL 0.2-1.0 UA NITRITE DIPSTICK (test code=LUIS) NEGATIVE NEGATIVE UA LEUKOCYTE ESTERASE DIPSTICK (test code=LEUU) 1+ NEGATIVE UA WBC (test code=WBCU) 4-9 WBC/HPF 0-3 UA RBC (test code=RBCU) 4-10 RBC/HPF 0-3 UA BACTERIA (test code=BACU) NONE SEEN /HPF NONE SEEN UA SQUAMOUS CELLS (test code=SQU) 0-5 /HPF NONE SEEN UA MUCUS (test code=MUCU) TRACE /LPF NONE SEEN COMMENTS: Clean CatchCOMPREHENSIVE METABOLIC [id number] 11:42:00* Test Item Value Reference Range Comments SODIUM (test code=NA) 136 mEq/L 134-147 POTASSIUM (test code=K) 3.7 mEq/L 3.4-5.0 CHLORIDE (test code=CL) 102 mEq/L 100-108 CARBON DIOXIDE (test code=CO2) 29 mEq/L 21-33 ANION GAP (test code=GAP) 9 0-20 GLUCOSE (test code=GLU) 105 mg/dL 70-110 BLOOD UREA NITROGEN (test code=BUN) 11 mg/dL 7-18 GLOMERULAR FILTRATION RATE (test code=GFR) 98.5 70-80 Units of measure=ml/min/1.73 m2 CREATININE (test code=CREAT) 0.6 mg/dL 0.6-1.3 TOTAL PROTEIN (test code=PROT) 6.8 g/dL 6.4-8.2 ALBUMIN (test code=ALB) 3.60 g/dL 3.4-5.0 CALCIUM (test code=CA) 9.2 mg/dL 8.0-10.5 BILIRUBIN TOTAL (test code=BILT) 0.90 mg/dL 0.0-1.0 SGOT/AST (test code=AST) 20 IUnit/L 15-37 SGPT/ALT (test code=ALT) 9 IUnit/L 15-65 ALKALINE PHOSPHATASE TOTAL (test code=ALKP) 71 IUnit/L 20-125 CREATINE KINASE (CK)2019-03-16 11:42:00* Test Item Value Reference Range Comments CREATINE KINASE (CK) (test code=CK) 64 35-232 Result is in INTERNATIONAL UNITS/LITER THYROID STIMULATING [id number] 11:42:00* Test Item Value Reference Range Comments THYROID STIMULATING HORMONE (test code=TSH) 0.38 0.42-5.47 Results in lucia-International Units/mL [id number] 11:42:00* Test Item Value Reference Range Comments TROPONIN-I (test code=TROPI) 1.220 ng/mL 0.000-0.045 Negative: <=0.045 Positive: >=0.046 Correlation with serial results, other cardiac markers andclinical findings is necessary to determine the clinicalsignificance of this result. Results using different methodologies should not be comparedto one another as quantitative results may vary by method. COMPREHENSIVE METABOLIC [id number] 11:38:00* Test Item Value Reference Range Comments SODIUM (test code=NA) 136 mEq/L 134-147 POTASSIUM (test code=K) 3.7 mEq/L 3.4-5.0 CHLORIDE (test code=CL) 102 mEq/L 100-108 CARBON DIOXIDE (test code=CO2) 29 mEq/L 21-33 ANION GAP (test code=GAP) 9 0-20 GLUCOSE (test code=GLU) 105 mg/dL 70-110 BLOOD UREA NITROGEN (test code=BUN) 11 mg/dL 7-18 GLOMERULAR FILTRATION RATE (test code=GFR) 98.5 70-80 Units of measure=ml/min/1.73 m2 CREATININE (test code=CREAT) 0.6 mg/dL 0.6-1.3 TOTAL PROTEIN (test code=PROT) 6.8 g/dL 6.4-8.2 ALBUMIN (test code=ALB) 3.60 g/dL 3.4-5.0 CALCIUM (test code=CA) 9.2 mg/dL 8.0-10.5 BILIRUBIN TOTAL (test code=BILT) 0.90 mg/dL 0.0-1.0 SGOT/AST (test code=AST) 20 IUnit/L 15-37 SGPT/ALT (test code=ALT) 9 IUnit/L 15-65 ALKALINE PHOSPHATASE TOTAL (test code=ALKP) 71 IUnit/L 20-125 CREATINE KINASE (CK)2019-03-16 11:38:00* Test Item Value Reference Range Comments CREATINE KINASE (CK) (test code=CK) 64 35-232 Result is in INTERNATIONAL UNITS/LITER THYROID STIMULATING [id number] 11:38:00* Test Item Value Reference Range Comments THYROID STIMULATING HORMONE (test code=TSH) 0.42-5.47 [id number] 11:38:00* Test Item Value Reference Range Comments TROPONIN-I (test code=TROPI) 1.220 ng/mL 0.000-0.045 Negative: <=0.045 Positive: >=0.046 Correlation with serial results, other cardiac markers andclinical findings is necessary to determine the clinicalsignificance of this result. Results using different methodologies should not be comparedto one another as quantitative results may vary by method. - CT HEAD/BRAIN W/O [id number] 11:26:00 Name: BIANKA DE LEON [facility] : 1945 Age/S: 73 / F [address] [place] [address] Unit #: [id number] Loc: [place] [address] Phys: Jared Arndt DO Acct: [id number] Dis Date: Status: REG ER PHONE #: [phone] Exam Date: 03/16/2019 1112 FAX #: [phone] Reason: Altered Mental Status EXAMS: CPT CODE: [id number] CT HEAD/BRAIN W/O CONT 23562 CT head without contrast 03/16/2019 HISTORY: Altered mental status PROCEDURE: Multiple axial images from the skull base to the skull vertex were obtained without contrast. Coronal and sagittal reconstructed images were performed. CT imaging performed at this location utilizes radiation dose optimization techniques which include one or more of the following: -Automated exposure control -Adjustment of the mA and/or kV according to patient size - Use of iterative reconstruction technique CT Radiation Dose DLP 464.9 mGy- cm Comparison is made to 03/05/2019 FINDINGS: Old right basal ganglia lacunar infarct is noted. There is encephalomalacia in the right posterior temporal and parietal white matter which is also unchanged. There are mild white matter hypodensities. There is mild atrophy. No acute intracranial hemorrhage, midline shift, extra-axial fluid collection, or hydrocephalus is present. There is no new area of decreased density within the cortex to suggest an acute infarct. The visualized mastoid air cells are clear. There is no air-fluid level in th e visualized paranasal sinuses. Left nasal septal deviation is noted. Di stal internal carotid arterial calcifications are present. IMPRESSION: 1. No acute intracranial abnormality. 2. Stable e ncephalomalacia in right posterior temporal and parietal white matter. 3. Stable mild atrophy and mild chronic microvascular ischemic c hanges. 4. Old right basal ganglia lacunar infarct. S L: [id number] at 1126 Reported and signed by: Db Lu M.D. PAGE 1 Signed Report (CONTINUED) Name: BIANKA DE LEON [facility] : 1945 Age/S: 73 / F [address] [place] [address] Unit #: [id number] Loc: [place] [address] Phys: Jared Arndt DO Acct: [id number] Dis Date: Status: REG ER PHONE #: [phone] Exam Date: 03/16/2019 1112 FAX #: [phone] Reason: A ltered Mental Status EXAMS: CPT CODE: [id number] CT HEAD/BRAIN W/O CONT 02417 <Continued> CC: Jared Arndt DO; Orville Odell DO Technologist:Freda Garay, RT(R)(CT) CTDI: DLP: Trnscb Date/Time: 03/16/2019 (1126) [email or web address] Orig Print D/T: S: 03/16/2019 (1129) PAGE 2 Signed Report PROTHROMBIN [id number] 11:23:00* Test Item Value Reference Range Comments PROTHROMBIN TIME PATIENT (test code=PTP) 12.1 SECONDS 9.3-12.9 INTERNATIONAL NORMAL RATIO (test code=INR) 1.1 0.8-1.2 TARGET INR BY INDICATION Indication INR1. Prophylaxis of venous thrombosis 2.0 - 3.0 (orthopedic surgery), Prophylaxis of venous thrombosis (other than high-risk surgery), Treatment of Deep Vein Thrombosis/Pulmonary Embolism, Prevention of systemic embolism - Tissue heart valves, Acute Myocardial Infarction (to prevent systemic embolism), Valvular heart disease, Atrial Fibrillation, Bileaflet mechanical valve in aortic position.2. Mechanical prosthetic valves (high risk), 2.5 - 3.5 Presence of Lupus Anticoagulant or Antiphospholipid Antibodies, Prevention of systemic embolism - Acute Myocardial Infarction (to prevent recurrent infarct). CBC W/AUTO [id number] 11:16:00* Test Item Value Reference Range Comments WHITE BLOOD CELL (test code=WBC) 8.03 x10 3/uL 4.5-11.0 RED BLOOD CELL (test code=RBC) 3.60 x10 6/uL 3.54-5.02 HEMOGLOBIN (test code=HGB) 11.4 g/dL 11.0-15.0 HEMATOCRIT (test code=HCT) 33.5 % 33.0-45.0 MEAN CELL VOLUME (test code=MCV) 93.1 fL 81.0-99.0 MEAN CELL HGB (test code=MCH) 31.7 pg 27.0-33.0 MEAN CELL HGB CONCETRATION (test code=MCHC) 34.0 g/dL 33.0-37.0 RED CELL DISTRIBUTION WIDTH CV (test code=RDW) 12.8 % 11.5-14.5 RED CELL DISTRIBUTION WIDTH SD (test code=RDW-SD) 43.9 fL 37.0-54.0 PLATELET COUNT (test code=PLT) 233 x10 3/uL 150-400 MEAN PLATELET VOLUME (test code=MPV) 10.4 fL 7.0-9.0 NEUTROPHIL % (test code=NT%) 74.7 % 56.0-77.0 IMMATURE GRANULOCYTE % (test code=IG%) 0.4 % 0.0-2.0 LYMPHOCYTE % (test code=LY%) 16.2 % 14.0-32.0 MONOCYTE % (test code=MO%) 7.3 % 4.8-9.0 EOSINOPHIL % (test code=EO%) 0.9 % 0.3-3.7 BASOPHIL % (test code=BA%) 0.5 % 0.0-2.0 NUCLEATED RBC % (test code=NRBC%) 0.0 % 0-0 NEUTROPHIL # (test code=NT#) 6.00 x10 3/uL 2.0-7.6 IMMATURE GRANULOCYTE # (test code=IG#) 0.03 x10 3/uL 0.00-0.03 LYMPHOCYTE # (test code=LY#) 1.30 x10 3/uL 1.0-3.8 MONOCYTE # (test code=MO#) 0.59 x10 3/uL 0.1-0.8 EOSINOPHIL # (test code=EO#) 0.07 x10 3/uL 0.0-0.2 BASOPHIL # (test code=BA#) 0.04 x10 3/uL 0.0-0.2 NUCLEATED RBC # (test code=NRBC#) 0.00 x10 3/uL 0.0-0.1 MANUAL DIFF REQUIRED (test code=MDIFF) NO [id number] 14:09:00* Test Item Value Reference Range Comments TROPONIN-I (test code=TROPI) 1.280 ng/mL 0.000-0.045 Negative: <=0.045 Positive: >=0.046 Correlation with serial results, other cardiac markers andclinical findings is necessary to determine the clinicalsignificance of this result. Results using different methodologies should not be comparedto one another as quantitative results may vary by method. PROTHROMBIN [id number] 13:49:00* Test Item Value Reference Range Comments PROTHROMBIN TIME PATIENT (test code=PTP) 11.9 SECONDS 9.3-12.9 INTERNATIONAL NORMAL RATIO (test code=INR) 1.1 0.8-1.2 TARGET INR BY INDICATION Indication INR1. Prophylaxis of venous thrombosis 2.0 - 3.0 (orthopedic surgery), Prophylaxis of venous thrombosis (other than high-risk surgery), Treatment of Deep Vein Thrombosis/Pulmonary Embolism, Prevention of systemic embolism - Tissue heart valves, Acute Myocardial Infarction (to prevent systemic embolism), Valvular heart disease, Atrial Fibrillation, Bileaflet mechanical valve in aortic position.2. Mechanical prosthetic valves (high risk), 2.5 - 3.5 Presence of Lupus Anticoagulant or Antiphospholipid Antibodies, Prevention of systemic embolism - Acute Myocardial Infarction (to prevent recurrent infarct). THROMBOPLASTIN TIME [id number] 13:49:00* Test Item Value Reference Range Comments THROMBOPLASTIN TIME PARTIAL (test code=PTT) 36.7 Seconds 25.0-39.5 Therapeutic Range: 50.4 - 88.3 Seconds Effective 12/17/2018 - DUP VEIN [id number] 12:23:00 Name: BIANKA DE LEON [facility] : 1945 Age/S: 73 / F [address] [place] [address] Unit #: [id number] Loc: [place] [address] Phys: Manoj Albarado NP Acct: [id number] Dis Date: Status: ADM IN PHONE #: [phone] Exam Date: 03/05/2019 1221 FAX #: [phone] Reason: R/O DVT EXAMS: CPT CODE: [id number] DUP VEIN CARMELITA 88291 EXAM: US BILATERAL LOWER EXTREMITY VENOUS DOPPLER : 1945; Age: 73 years y/o Female INDICATION: Elevated d-dimer R/O DVT COMPARISON: None. TECHNIQUE: Multiplanar grayscale, color Doppler and spectral Doppler ultrasound of the bilateral lower extremity veins. FINDINGS: Right lower extremity: The common femoral vein, femoral vein, popliteal vein and visualized posterior tibial/calf veins are patent. There is no echogenic debris to suggest deep venous thrombosis. Left lower extremity: The common femoral vein, superficial femoral vein, popliteal vein and visualized posterior tibial/calf veins are patent. There is no echogenic debris to suggest deep venous thrombosis. IMPRESSION: No Deep Venous Thrombosis of the lower extremities. SL: [id number] at 1223 Reported and signed by: Brandt Escoto D.O. CC: Chepe Armas MD; Manoj Albarado NP; Orville Odell DO Technologist: Sissy Lennon RDMS(OB)(AB) Trnscb Date/Time: 03/05/2019 (1064) [email or web address] Orig Print D/T: S: 03/05/2019 (9365) Probe: PAGE 1 Signed Report B-TYPE NATRIURETIC [id number] 09:15:00* Test Item Value Reference Range Comments B-TYPE NATRIURETIC PEPTIDE (test code=BNP) 196.6 PG/ML 0-100 [id number] 09:15:00* Test Item Value Reference Range Comments D-DIMER (test code=DDIMER) 523 ng/mlFEU <=500 THROMBOSIS AND/OR PULMONARY EMBOLISM AND THE CLINICAL CUT- OFF VALUE FOR EXCLUSION (500 ng/mL FEU) OF THESE CONDITIONSIS VALIDATED BY THE ONCOLOGY NURSE OF THE METHOD. A NEGATIVE D-DIMER RESULT WHEN COMBINED WITH A CLINICALASSESSMENT OF LOW PRETEST PROBABILITY HAS BEEN SHOWN TO HAVEA HIGH NEGATIVE PREDICTIVE VALUE OF DVT OR PE. D-DIMER VALUES >500 ng/mL FEU ARE NOT DIAGNOSTIC FOR DVT, PEor DIC WITHOUT OTHER CONFIRMATORY TESTS AND APPROPRIATECLINICAL EUALUATIONS. PROTHROMBIN [id number] 07:38:00* Test Item Value Reference Range Comments PROTHROMBIN TIME PATIENT (test code=PTP) 11.5 SECONDS 9.3-12.9 INTERNATIONAL NORMAL RATIO (test code=INR) 1.0 0.8-1.2 TARGET INR BY INDICATION Indication INR1. Prophylaxis of venous thrombosis 2.0 - 3.0 (orthopedic surgery), Prophylaxis of venous thrombosis (other than high-risk surgery), Treatment of Deep Vein Thrombosis/Pulmonary Embolism, Prevention of systemic embolism - Tissue heart valves, Acute Myocardial Infarction (to prevent systemic embolism), Valvular heart disease, Atrial Fibrillation, Bileaflet mechanical valve in aortic position.2. Mechanical prosthetic valves (high risk), 2.5 - 3.5 Presence of Lupus Anticoagulant or Antiphospholipid Antibodies, Prevention of systemic embolism - Acute Myocardial Infarction (to prevent recurrent infarct). THROMBOPLASTIN TIME [id number] 07:38:00* Test Item Value Reference Range Comments THROMBOPLASTIN TIME PARTIAL (test code=PTT) 35.3 Seconds 25.0-39.5 Therapeutic Range: 50.4 - 88.3 Seconds Effective 12/17/2018 LIPOPROTEIN [id number] 07:33:00* Test Item Value Reference Range Comments LIPOPROTEIN LDL (test code=LDL) 86 mg/dL 0-100 <100 [id number] NEAR OPTIMAL/ABOVE [id number] HIGH>MD=317 VERY HIGH*Guidelines provided by the National Cholesterol EducationProgram Adult Treatment Panel III URINALYSIS [id number] 07:14:00* Test Item Value Reference Range Comments UA COLOR (test code=COLU) YELLOW YEL/STRAW UA APPEARANCE (test code=APPU) CLEAR CLEAR UA GLUCOSE DIPSTICK (test code=DGLUU) NEGATIVE NEGATIVE UA BILIRUBIN DIPSTICK (test code=BILU) NEGATIVE NEGATIVE UA KETONE DIPSTICK (test code=KETU) TRACE NEGATIVE UA SPECIFIC GRAVITY (test code=SGU) 1.011 1.005-1.030 UA BLOOD DIPSTICK (test code=XIOMARA) NEGATIVE NEGATIVE UA PH DIPSTICK (test code=KINZA) 6.0 5.0-7.0 UA PROTEIN DIPSTICK (test code=PROU) NEGATIVE NEGATIVE UA UROBILINIOGEN DIPSTICK (test code=URO) 0.2 mg/dL 0.2-1.0 UA NITRITE DIPSTICK (test code=LUIS) NEGATIVE NEGATIVE UA LEUKOCYTE ESTERASE DIPSTICK (test code=LEUU) TRACE NEGATIVE UA WBC (test code=WBCU) 4-9 WBC/HPF 0-3 UA RBC (test code=RBCU) 0-3 RBC/HPF 0-3 UA BACTERIA (test code=BACU) NONE SEEN /HPF NONE SEEN UA SQUAMOUS CELLS (test code=SQU) 0-5 /HPF NONE SEEN UA HYALINE CAST (test code=HYALU) 0-2 /LPF NONE SEEN UA MUCUS (test code=MUCU) TRACE /LPF NONE SEEN COMMENTS: Clean Catch- CT HEAD/BRAIN W/O [id number] 07:13:00 Name: BIANKA DE LEON [facility] : 1945 Age/S: 73 / F [address] [place] [address] Blvd Unit #: [id number] Loc: [place] [address] Phys: Marcello Reynolds MD Acct: [id number] Di s Date: Status: REG ER PHONE #: Exam Date: 03/05/2019 0653 FAX #: Reason: confusion, trouble naming family members, resol EXAMS: CPT CODE: [id number] CT HEAD/BRAIN W/O CONT 48173 EXAM: CT, CT HEAD/BRAIN W /O CONTRAST: 03/05/2019, 0654 hours HISTORY: confusion, trouble kelly ng family members, resolved COMPARISON: 10/20/2018. T ECHNIQUE: CT images were obtained from the foramen magnum to the vertex wi thout the use of intravenous contrast on a multidetector CT. CT imaging wa s performed with exposure control parameters to reduce radiation dose. Cor onal and sagittal reconstructions were obtained. CT radiation dose DLP: 419.70 mGy-cm FINDINGS: Beam hardening artifact flores its the optimal evaluation of base of brain and posterior fossa. BRAIN PARENCHYMA: Mild diffuse brain atrophy seen. Mild bilateral per iventricular hypodensities in keeping with mild chronic small vessel ische nato changes. Encephalomalacia in the right occipitoparietal lobe from old infarct, stable No focal mass lesions on this noncontrast head CT. No ma ss effect, midline shift or edema. There are no intra-axial or extra-axia l fluid collections, intraventricular or intraparenchymal hemorrhage. No l ow attenuation demarcating areas on this non-contrast CT to suggest subacu te stroke. Intracranial vascular calcification seen VENTRIC LES: The lateral ventricles, third and fourth ventricles appear unremarkab le. The basilar cisterns are normal. ORBITS, MASTOIDS AND PARANAS AL SINUSES: The visualized orbits are unremarkable. Minimal mucosal thicke lizbeth anterior right ethmoid sinus. The mastoid air cells are clear. SKULL: There are no osseous abnormalities. If the re is further concern for intracranial pathology or acute stroke, MRI of t he brain may be performed for complete assessment. IMPRE SSION: 1. No acute intracranial abnormality. No noncontrast CT evidenc e of mass, hemorrhage or subacute stroke. 2. Mild generalized a trophy. Mild chronic small vessel ischemic PAGE 1 Si gned Report (CONTINUED) Name: BIANKA DE LEON [facility] : 1945 Age/S: 73 / F [address] [facility] Unit #: [id number] Loc: [place] [address] Phys: Jared Reynolds MD Acct: [id number] Dis Date: Status: REG ER PHONE #: [phone] Exam Date: 03/05/2019 0653 FAX #: [phone] Reason: confusion, trouble n aming family members, resol EXAMS: CPT CODE: [id number] CT HEAD/BRAIN W/O CONT 30846 <Continued> changes. 3. Old right occipitoparietal infarct SL: [id number] at 0713 Reported and signed by: Adrian Urbina M.D. CC: Jared Reynolds MD Technologist:RT Marixa(R)(CT) CTDI: DLP: Trnscb Date/Time: 03/05/2019 (712) [email or web address] Orig Print D/T: S: 03/05/2019 (0751) PAGE 2 Signed Report - XR CHEST 1 [id number] 07:07:00 FAX: Jared Reynolds MD [phone] [place]: St: REG Name: BIANKA GREEN [facility] : [birth year] Age/S: 73/F [address] [place] [address] Unit #: [id number] Loc: [place] [address] Phys: Jared Reynolds MD Acct: [id number] Dis Date: Status: REG ER PHONE #: [phone] Exam Date: 03/05/2019 0651 FAX #: [phone] Reason: stroke EXAMS: CPT CODE: [id number] XR CHEST 1 V 75450 EXAM: CHEST SINGLE VIEW HISTORY: 73-year-old female with stroke COMPARISON: Chest radi ograph 10/20/2018 FINDINGS: The lungs are clear. The cardiomediasti nal silhouette is normal for projection. No acute osseous abnormality. IMPRESSION: 1. No acute cardiopulmonary abnormal ity. SL: [id number] Electronically Si gned by Aleksander Caro on 03/05/2019 at 0707 Reported a nd signed by: Jacob Caro M.D. CC: Jared Reynolds MD Technologist: Jose Mcmanus, RT(R) Trnscrd Date/Time/By: 03/05/2019 (706) : By: [email or web address] Orig Print D/T: S: 03/05/2019 (709) PAGE 1 Signed Report BASIC METABOLIC [id number] 07:03:00* Test Item Value Reference Range Comments SODIUM (test code=NA) 139 mEq/L 134-147 POTASSIUM (test code=K) 3.7 mEq/L 3.4-5.0 CHLORIDE (test code=CL) 103 mEq/L 100-108 CARBON DIOXIDE (test code=CO2) 29 mEq/L 21-33 ANION GAP (test code=GAP) 11 0-20 GLUCOSE (test code=GLU) 84 mg/dL 70-110 BLOOD UREA NITROGEN (test code=BUN) 13 mg/dL 7-18 GLOMERULAR FILTRATION RATE (test code=GFR) 98.5 70-80 Units of measure=ml/min/1.73 m2 CREATININE (test code=CREAT) 0.6 mg/dL 0.6-1.3 CALCIUM (test code=CA) 8.7 mg/dL 8.0-10.5 [id number] 07:03:00* Test Item Value Reference Range Comments TROPONIN-I (test code=TROPI) 1.210 ng/mL 0.000-0.045 Negative: <=0.045 Positive: >=0.046 Correlation with serial results, other cardiac markers andclinical findings is necessary to determine the clinicalsignificance of this result. Results using different methodologies should not be comparedto one another as quantitative results may vary by method. [id number] 06:48:00* Test Item Value Reference Range Comments GLUBED (test code=GLUBED) 83 MG/DL 70-110 Performed by certified drawing press operator at [facility] CBC W/O [id number] 06:44:00* Test Item Value Reference Range Comments WHITE BLOOD CELL (test code=WBC) 7.05 x10 3/uL 4.5-11.0 RED BLOOD CELL (test code=RBC) 3.38 x10 6/uL 3.54-5.02 HEMOGLOBIN (test code=HGB) 10.6 g/dL 11.0-15.0 HEMATOCRIT (test code=HCT) 32.4 % 33.0-45.0 MEAN CELL VOLUME (test code=MCV) 95.9 fL 81.0-99.0 MEAN CELL HGB (test code=MCH) 31.4 pg 27.0-33.0 MEAN CELL HGB CONCETRATION (test code=MCHC) 32.7 g/dL 33.0-37.0 RED CELL DISTRIBUTION WIDTH CV (test code=RDW) 13.0 % 11.5-14.5 RED CELL DISTRIBUTION WIDTH SD (test code=RDW-SD) 45.0 fL 37.0-54.0 PLATELET COUNT (test code=PLT) 211 x10 3/uL 150-400 MEAN PLATELET VOLUME (test code=MPV) 10.3 fL 7.0-9.0 PROCALCITONIN (PCT)2018-10-20 18:48:00* Test Item Value Reference Range Comments PROCALCITONIN (PCT) (test code=PROCAL) < 0.05 ng/mL 0.00-0.05 PROCALCITONIN (PCT) NORMAL RANGE (ADULT): <0.05 NG/ML. * a concentration <0.5 ng/mL represents a low risk of severe sepsis and/or septic shock.* a concentration >2 ng/mL represents a high risk of severe sepsis and/or septic shock.Nevertheless, concentrations <0.5 ng/mL do not exclude aninfection, on account of localized infections (withoutsystemic signs) which can be associated with such lowconcentrations, or a systemic infection in its initialstages (< 6 hours). Furthermore, increased procalcitonincan occur without infection. PCT concentrations between 0.5and 2.0 ng/mL should be interpreted taking into account thepatient's history. It is recommended to retest PCT within6-24 hours if any concentrations <2 ng/mL are obtained. LIPOPROTEIN [id number] 16:43:00* Test Item Value Reference Range Comments LIPOPROTEIN LDL (test code=LDL) 97 mg/dL 0-100 <100 [id number] NEAR OPTIMAL/ABOVE [id number] HIGH>ID=600 VERY HIGH*Guidelines provided by the National Cholesterol EducationProgram Adult Treatment Panel III COMPREHENSIVE METABOLIC [id number] 16:26:00* Test Item Value Reference Range Comments SODIUM (test code=NA) 136 mEq/L 134-147 POTASSIUM (test code=K) 4.3 mEq/L 3.4-5.0 CHLORIDE (test code=CL) 103 mEq/L 100-108 CARBON DIOXIDE (test code=CO2) 28 mEq/L 21-33 ANION GAP (test code=GAP) 9 0-20 GLUCOSE (test code=GLU) 98 mg/dL 70-110 BLOOD UREA NITROGEN (test code=BUN) 10 mg/dL 7-18 GLOMERULAR FILTRATION RATE (test code=GFR) 98.8 70-80 Units of measure=ml/min/1.73 m2 CREATININE (test code=CREAT) 0.6 mg/dL 0.6-1.3 TOTAL PROTEIN (test code=PROT) 7.2 g/dL 6.4-8.2 ALBUMIN (test code=ALB) 3.70 g/dL 3.4-5.0 CALCIUM (test code=CA) 9.1 mg/dL 8.0-10.5 BILIRUBIN TOTAL (test code=BILT) 0.70 mg/dL 0.0-1.0 SGOT/AST (test code=AST) 19 IUnit/L 15-37 SGPT/ALT (test code=ALT) 8 IUnit/L 15-65 ALKALINE PHOSPHATASE TOTAL (test code=ALKP) 68 IUnit/L 20-125 [id number] 16:26:00* Test Item Value Reference Range Comments TROPONIN-I (test code=TROPI) 1.080 ng/mL 0.000-0.045 Negative: <=0.045 Positive: >=0.046 Correlation with serial results, other cardiac markers andclinical findings is necessary to determine the clinicalsignificance of this result. Results using different methodologies should not be comparedto one another as quantitative results may vary by method. LACTIC [id number] 16:16:00* Test Item Value Reference Range Comments LACTIC ACID (test code=LACT) 0.6 mmol/L 0.4-1.9 B-TYPE NATRIURETIC [id number] 15:59:00* Test Item Value Reference Range Comments B-TYPE NATRIURETIC PEPTIDE (test code=BNP) 558.9 PG/ML 0-100 PROTHROMBIN [id number] 15:34:00* Test Item Value Reference Range Comments PROTHROMBIN TIME PATIENT (test code=PTP) 11.7 SECONDS 9.3-12.9 INTERNATIONAL NORMAL RATIO (test code=INR) 1.1 0.8-1.2 TARGET INR BY INDICATION Indication INR1. Prophylaxis of venous thrombosis 2.0 - 3.0 (orthopedic surgery), Prophylaxis of venous thrombosis (other than high-risk surgery), Treatment of Deep Vein Thrombosis/Pulmonary Embolism, Prevention of systemic embolism - Tissue heart valves, Acute Myocardial Infarction (to prevent systemic embolism), Valvular heart disease, Atrial Fibrillation, Bileaflet mechanical valve in aortic position.2. Mechanical prosthetic valves (high risk), 2.5 - 3.5 Presence of Lupus Anticoagulant or Antiphospholipid Antibodies, Prevention of systemic embolism - Acute Myocardial Infarction (to prevent recurrent infarct). THROMBOPLASTIN TIME [id number] 15:34:00* Test Item Value Reference Range Comments THROMBOPLASTIN TIME PARTIAL (test code=PTT) 37.0 Seconds 25.0-39.5 Therapeutic Range: 61.8-83.8 Sec Effective 10/01/2013 CBC W/AUTO [id number] 15:24:00* Test Item Value Reference Range Comments WHITE BLOOD CELL (test code=WBC) 7.10 x10 3/uL 4.5-11.0 RED BLOOD CELL (test code=RBC) 3.66 x10 6/uL 3.54-5.02 HEMOGLOBIN (test code=HGB) 11.3 g/dL 11.0-15.0 HEMATOCRIT (test code=HCT) 34.6 % 33.0-45.0 MEAN CELL VOLUME (test code=MCV) 94.5 fL 81.0-99.0 MEAN CELL HGB (test code=MCH) 30.9 pg 27.0-33.0 MEAN CELL HGB CONCETRATION (test code=MCHC) 32.7 g/dL 33.0-37.0 RED CELL DISTRIBUTION WIDTH CV (test code=RDW) 14.2 % 11.5-14.5 RED CELL DISTRIBUTION WIDTH SD (test code=RDW-SD) 49.2 fL 37.0-54.0 PLATELET COUNT (test code=PLT) 247 x10 3/uL 150-400 MEAN PLATELET VOLUME (test code=MPV) 10.8 fL 7.0-9.0 NEUTROPHIL % (test code=NT%) 76.8 % 56.0-77.0 IMMATURE GRANULOCYTE % (test code=IG%) 0.3 % 0.0-2.0 LYMPHOCYTE % (test code=LY%) 13.9 % 14.0-32.0 MONOCYTE % (test code=MO%) 7.6 % 4.8-9.0 EOSINOPHIL % (test code=EO%) 1.0 % 0.3-3.7 BASOPHIL % (test code=BA%) 0.4 % 0.0-2.0 NUCLEATED RBC % (test code=NRBC%) 0.0 % 0-0 NEUTROPHIL # (test code=NT#) 5.45 x10 3/uL 2.0-7.6 IMMATURE GRANULOCYTE # (test code=IG#) 0.02 x10 3/uL 0.00-0.03 LYMPHOCYTE # (test code=LY#) 0.99 x10 3/uL 1.0-3.8 MONOCYTE # (test code=MO#) 0.54 x10 3/uL 0.1-0.8 EOSINOPHIL # (test code=EO#) 0.07 x10 3/uL 0.0-0.2 BASOPHIL # (test code=BA#) 0.03 x10 3/uL 0.0-0.2 NUCLEATED RBC # (test code=NRBC#) 0.00 x10 3/uL 0.0-0.1 MANUAL DIFF REQUIRED (test code=MDIFF) NO - CT HEAD/BRAIN W/O [id number] 14:28:00 Name: BIANKA DE LEON [facility] : 1945 Age/S: 72 / F [address] [place] [address] Unit #: [id number] Loc: [place] [address] Phys: Katherine Howard DO Acct: [id number] Dis Date: Status: REG ER PHONE #: [phone] Exam Date: 10/20/20181410 FAX #: [phone] Reason: head pain post fall EXAMS: CPT CODE: [id number] CT HEAD/BRAIN W/O CONT 02599 Clinical Indication: Head pain. Fall. Comparison: Brain MR 02/21/2017 TECHNIQUE: CT images were obtained from the foramen magnum to the vertex without the use of intravenous contrast on a multidetector CT. Axial, coronal and sagittal reformats created. Total exam DLP: 465 mGy-cm. DLP means dose length product, a radiation dose metric that does not report individual patient dose, but is a reference value related to the radiation output of the scanner used for this exam. FINDINGS: Calvarium and scalp: No acute fracture, or destructive osseous lesion. No scalp hematoma. Ventricles and sulci: Widened, consistent with cerebral volume loss. No hydrocephalus. Extra-axial spaces: No acute extra axial hemorrhage, fluid collection or mass effect. BRAIN PARENCHYMA: No acute parenchymal hemorrhage, or large vascular territory infarction. Unchanged appearance of the occipital lesion in the right temporal lobe/inferior parietal lobule there are scattered areas of hypoattenuation in the supratentorial white matter, which are nonspecific, but likely represent moderate microvascular ischemic changes. There is no mass effect, midline shift or edema. Paranasal sinuses and mastoid air cells: Paranasal sinuses are unremarkable. The mastoid air cells are clear. If there is further concern for intracranial pathology or acute stroke, MRI of the brain may be performed for complete assessment. IMPRESSION: No acute intracranial hemorrhage, mass effect or large subacute infarction. Chronic findings: PAGE 1 Signed Report (CONTINUED) Name: BIANKA DE LEON [facility] : 1945 Age/S: 72 / F [address] [place] [address] Unit #: [id number] Loc: [place] [address] Phys: Katherine Howard DO Acct: [id number] Dis Date: Status: REG ER PHONE #: [phone] Exam Date: 10/20/20181410 FAX #: [phone] Reason: head pain post fall EXAMS: CPT CODE: [id number] HEAD/BRAIN W/O CONT 58542 <Continued > -Encephalomalacia in the right temporal/inferior parietal lobule. -Moderate microvascular ischemic changes. SL: ALLANPC02 at 142 Reported and signed by: Nikita Roth M.D. CC: Katherine phan DO Technologist:RT Delmer(R)(CT) CTDI: DLP: Trnscb Date/Time: 10/20/2018 (1427) Jeri JR44 Orig Print D/T: S: 10/20/2018 (4503) CTDI: DLP: PAGE 2 Signed Report - XR HIP W/PEL UNI 2+V [id number] 13:55:00 FAX: Katherine Rutherford DO [place]: St: REG Name: BIANKA GREEN [facility] : [birth year] Age/S: 72/F [address] [place] [address] Unit #: [id number] Loc: [place] [address] Phys: Katherine Howard DO Acct: [id number] Dis Date: Status: REG ER PHONE #: [phone] Exam Date: 10/20/2018 1350 FAX #: [phone] Reason: pain post fall EXAMS: CPT CODE: [id number] XR HIP W/PEL UNI 2+[place] [address] Procedure: Right Hip Radiographs. Clinical Indication: Right hip pain post fall. Gaetano rison: Right hip radiographs 09/27/2017. FINDINGS: T he 2 views of the right hip demonstrate minimal degenerative change includ ing marginal osteophyte formation and subchondral sclerosis. No acute dis placed fracture or dislocation is identified. IMPRESSION: 1. Minimal degenerative change. SL: CY-H at 1963 Reported and s igned by: Daniel Murray M.D. CC: Katherine Howard DO Technologist: Barb Viera RT(R) Trnscrd Date/Time/By: 10/20/2018 (9334) : By: Ramona Orig Print D/T: S: 10/20/2018 (8526) PAGE 1 Signed Report - XR CHEST 1 V 2018-10-20 13:54:00 FAX: Shahana Katherine Howard DO [place]: St: REG Name: BIANKA GREEN [facility] : [birth year] Age/S: 72/F [address] [place] [address] Unit #: [id number] Loc: [place] [address] Phys: Katherine Howard DO Acct: [id number] Dis Date: Status: REG ER PHONE #: [phone] Exam Date: 10/20/2018 1350 FAX #: [phone] Reason: dyspnea EXAMS: CPT CODE: [id number] XR CHEST 1 V 84994 PROCEDURE: Chest Radiograph. Clinical Indication: Dyspnea, congestion, sinus drainage, Parkinson's disease. Comparison: Chest radiograph 10/09/2017. FINDINGS: The chest shows normal lung volumes without interstit ial or airspace opacities, pleural effusions or pneumothorax. The right a pex is obscured secondary to patient positioning. Th e cardiac silhouette appears slightly enlarged. Degenerative change invol ves the thoracic spine. IMPRESSION: 1. No chest radiogr aphic evidence of acute cardiopulmonary disease. SL: CY-H at 9541 Reported and signed by: Daniel Murray M.D. CC: Katherine Howard DO Technologist: Barb cisneros RT(R) Trnscrd Date/Time/By: 10/20/2018 (2203 ) : By: [email or web address] Orig Print D/T: S: 10/20/2018 (0260) PAGE 1 Signed Report URINALYSIS [id number] 13:42:00* Test Item Value Reference Range Comments UA COLOR (test code=COLU) YELLOW YEL/STRAW UA APPEARANCE (test code=APPU) CLEAR CLEAR UA GLUCOSE DIPSTICK (test code=DGLUU) NEGATIVE NEGATIVE UA BILIRUBIN DIPSTICK (test code=BILU) NEGATIVE NEGATIVE UA KETONE DIPSTICK (test code=KETU) TRACE NEGATIVE UA SPECIFIC GRAVITY (test code=SGU) 1.011 1.005-1.030 UA BLOOD DIPSTICK (test code=XIOMARA) NEGATIVE NEGATIVE UA PH DIPSTICK (test code=KINZA) 6.0 5.0-7.0 UA PROTEIN DIPSTICK (test code=PROU) NEGATIVE NEGATIVE UA UROBILINIOGEN DIPSTICK (test code=URO) 0.2 mg/dL 0.2-1.0 UA NITRITE DIPSTICK (test code=LUIS) NEGATIVE NEGATIVE UA LEUKOCYTE ESTERASE DIPSTICK (test code=LEUU) 1+ NEGATIVE UA WBC (test code=WBCU) 4-9 WBC/HPF 0-3 UA RBC (test code=RBCU) 0-3 RBC/HPF 0-3 UA BACTERIA (test code=BACU) TRACE /HPF NONE SEEN UA SQUAMOUS CELLS (test code=SQU) 0-5 /HPF NONE SEEN UA MUCUS (test code=MUCU) TRACE /LPF NONE SEEN COMMENTS: Clean CatchUA CULT [id number] 13:42:00* Test Item Value Reference Range Comments UA CULTURE NEEDED? (test code=UACULT) NO, WBC<10 Criteria Culture Chk Criteria not met, Urine Culture cancelled. COMMENTS: Clean Catch
== END 2019-11-09 18:26 | disposition home or self-care (01) ==
LOC: ER 16:57
DX: Z43.1 Encounter for attention to gastrostomy (principal)
CPT/HCPCS: 99283